=== PATIENT | female | born 1965 | race Caucasian/White ===

== ENCOUNTER 2024-08-15 10:14 | Outpatient (CLI) | payer MEDICARE, MEDICAID, SELFPAY ==
--- NOTE | 2024-08-15 10:29 | XR_ITS ---
FINAL REPORT CLINICAL HISTORY: CHRONIC OBSTRUCTIVE PULMONARY DISEASE FINDINGS: 2 views of the chest were obtained . There are calcified left hilar lymph nodes. The heart is normal in size. The mediastinum is within normal limits. The lungs are clear. There is no pneumothorax. Osseous structures demonstrate a right shoulder prosthesis. IMPRESSION: No acute cardiopulmonary process. Reviewed, Interpreted and Dictated by Roney Robledo MD Transcribed by Quin Vazquez Authenticated and [facility]
== END 2024-08-15 23:59 | disposition home or self-care (01) ==
PROVIDERS: Visit Provider Family Medicine
DX: J44.9 Chronic obstructive pulmonary disease, unspecified (principal)
CPT/HCPCS: 71046

== ENCOUNTER 2024-11-19 14:47 | Outpatient (RCR) | payer MEDICARE, MEDICAID, SELFPAY | END 2024-11-19 23:59 | disposition home or self-care (01) | LOC: PT 14:47 | PROVIDERS: Visit Provider Orthopaedic Surgery | DX: Z96.651 Presence of right artificial knee joint (principal) | CPT/HCPCS: 97110; 97163; 97530 ==

== ENCOUNTER 2024-12-02 11:00 | Outpatient (RCR) | payer MEDICARE, MEDICAID, SELFPAY | END 2024-12-02 23:59 | disposition home or self-care (01) | LOC: PT 11:00 | PROVIDERS: Visit Provider Orthopaedic Surgery | DX: Z96.651 Presence of right artificial knee joint (principal) | CPT/HCPCS: 97110; 97140; 97530 ==

== ENCOUNTER 2025-04-02 10:54 | Outpatient (CLI) | payer MEDICARE, MEDICAID, SELFPAY ==
--- OUTSIDE RECORDS SUMMARY | 2025-04-02 10:58 | XMS_ITS | Continuity of Care Document ---
Author Organization [place] [facility] - [place] [facility] [place], [facility] and [facility] Address [address] [place] [address] Care Team Providers Care Onsite Case Manager Name Role Phone UMU RASCON Primary Care Provider PRESLEY MUSTAFA Primary Care Provider [phone] Assessment Encounter Date Assessment Date Assessment LastModified by Organization Details LastModified Time 03/11/2025 03/11/2025 BP improved, continue current dose of lisinopril. She reports MRI white matter in the past brain, 5 years ago. She reports some memory issues noted by herself and her daughter. She would like to see neurology to discuss further. Patient has been dealing with some depression. Will start Unable to get cardiac workup for her exertional fatigue and history of possible GA. She does report some PARRA. SSRI with methadone [email or web address] Not available 03/12/2025 09:41:55 Plan of Treatment Reminders Order Date Submit Date Provider Last Modified By Organization Details Last Modified Time Details Appointments Establish ed Visit 15 min 2024 11:00A M Chris Rodríguez PA-C Not available Not available Not available OV EST 20 2024 10:50A M Umu Rascon PA-C Not available Not available Not available Lab BMP, serum or plasma 2024 025 [facility], [address], [address], [place], [address], 03/12/2025 06:37:[address] referral 2024 025 [facility] [place], [address], [place], [address], 03/19/2025 18:02:55 Procedures lexiscan cardiolit e stress test (PROC) 2024 025 [facility] (Centralized Scheduling), [address], [place], [address], 03/11/2025 11:31:02 Surgeries None recorded. Imaging US, echocardi ogram, transthor acic, complete, w/ color flow 2024 [facility] (Centralized Scheduling), [address] [facility], [place], [address], 03/26/2025 09:28:57 Medication Orders ibuprofen 600 mg tablet 2024 025 [facility], [address], [address], 03/11/2025 10:14:53 Zoloft 25 mg tablet 2024 025 [facility], [address], [address], 03/12/2025 11:31:00 Patient TargetsNo targets recorded. Patient InstructionsNo instructions recorded. Reason for Referral Neurologist Referral for Amn esia Referring Physician: Umu Rascon, Family Medicine, Encounter Date: 03/11/2025 Results Created Date Observation Date Name Description Value Unit Range Abnormal Flag Note LastModifiedBy Organization Detail LastModifiedTime 02/13/2002/12/2025 chelo scrn mammo w/CAD bilat [facility] [address] [place] [address] Phone: Fax: Name: REHANA PELAEZ Exam Date: : 966 Age 60 years Gender : F Access ion: [id number] Physic geeta: PINO T, ISAÍASNE Y Facili ty: [facility] Facili ty HSV: Outpat ient Exam: CHELO SCRN MAMMO W/CAD BILAT Exam: 3-D screen ing mammog memo includ ing tomosy nthesi s and CAD (Compu ter Assist ed Detect ion). Clinic al indica tion: Asympt omatic screen ing exam Compar denise: Exams to 2020 TECHNI QUE: Routin e bilate ral 2D screen ing mammog silverio with CC and MLO views obtain ed. 3-D tomosy nthesi s and Comput er assist ed detect ion were utiliz ed for this exam. BREAST DENSIT Y: The breast s are hetero geneou sly dense, which may obscur e small masses FINDIN GS: No suspic ious mass, lety ectura l distor tion, or suspic ious calcif icatio ns are presen t. Stable bilate ral surgic al change s IMPRES DAJA: No eviden ce of malign pan in either breast Recomm endati on: Annual screen ing mammog memo recomm ended in one year The result s of this report will be commun icated to the patien t by letter in layman 's terms. ACR BI-RAD S: BI-RAD S assess ment catego ry 1: Negati ve mammog silverio Mammog memo does not detect approx imatel y 10-15% of breast cancer s. A normal mammog silverio does not exclud e breast cancer in a patien t with palpab le mass or abnorm al findin gs on physic al examin ation. These patien ts may need biopsi es and when clinic ally indica taras a biopsy should not be postpo eleonora becaus e of a normal mammog silverio. If the patien t has breast surger y or biopsy , FDA/MQ SA Regula tory Guidel sanna mandat e that this facili ty receiv e pathol ogic result s for follow -up correl ation. Electr onical ly signed by: Curtis Cutler MD 2024 03:16 PM EDT RP Workst ation: [id number] Dictat ed By: Curtis Cutler Transc ribed By: Transc ribed On: 025 3:16 PM Electr onical ly signed by: Curtis Cutler 025 Thank you for referr ing REHANA PELAEZ to [facility]. Legall y authen ticate d by FAHAD CONTI 02-12 15:16: 38 CC'ed Logic: Orderi ng Provid er: PINO VANESSA Y CC Provid er: BINTAET T ISAÍASNE Y Attend ing Provid er: TACKET T ISAÍASNE Y Referr ing Provid er: BINTAET T RASHEEDA Y Admitt ing Provid er: PINO VANESSA Y [email or web address] [facility] [address] [place] [address], [place], [address], 02/18/2025 14:12:43 02/29/20 25 02/27/2025 US, liver [facility] [address] [place] [address] Phone: Fax: Name: REHANA PELAEZ Exam Date: 02/28/20 : [birth year] Age 60 years Gender : F Access ion: [id number] Physic geeta: CHRIS RODRÍGUEZ Facili ty: [facility] Facili ty HSV: Outpat ient Exam: LIVER ULTRAS OUND Ultras ound liver the right upper quadra nt HISTOR Y: Hepati tis C COMPAR DENISE: 12/25/19 19 TECHNI QUE: B-mode color Dopple r and pulse Dopple r FINDIN GS: Pancre as normal in size and appear ance. Pancre atic duct is 0.25 cm The liver is 14.6 cm in length with normal echote xture. There is mild intrah epatic biliar y dilata tion. CBD is 0.8 cm. Gallbl adder free of wall thicke johanne or shadow ing stones . Wall 0.16 cm. Right kidney is 10.2 x 2.9 x 4.3 cm no stone, mass or hydron ephros is. No free fluid in the right upper quadra nt There is hepato pedal portal venous flow with color and pulse Dopple r. IMPRES DAJA: Dilate d CBD and mild intrah epatic biliar y dilata tion. Consid er MRCP evalua tion. Electr onical ly signed by: Filipe Stanley MD 2024 02:53 PM EDT RP Workst ation: [id number] Dictat ed By: Filipe Stanley Transc ribed By: Transc ribed On: 02/29/20 2:53 PM Electr onical ly signed by: Filipe Stanley 02/29/20 Thank you for referr REHANA Rojas to [facility]. Legall y authen ticate d by SURINDER DEE 2024-0 02-28 14:53: 13 CC'ed Logic: Orderi ng Provid er: KATY PECK Attend ing Provid er: KATY PECK Admitt ing Provid er: KATY PECK [facility] [address], [place], [address], 02/28/2025 14:57:14 03/05/20 25 02/26/2025 home sleep study No observ ation record ed. [email or web address] Not Available 03/06 09:54:07 03/12/20 25 02/12/2025 compl ete PFT w/ post [facility] hodil ator rama metry * No observ ation record ed. [facility] [address] [facility] [place], [address], 03/12/2025 15:15:59 Result Notes None recorded. Problems Name Problem SNOMED Code Status Onset Date Resolution Date Notes Provider Name and Address Organization Details Recorded Time Sinus bradycardi a 47932680 Active 2023 Hang Yu MD [address] [facility], [place], [address], [facility] & [place] 16:11:58 Chronic hepatitis C caused by Hepatitis C virus genotype 1a 476217130 Active 2024 Chris Rodríguez PA-C [address], [place], [address], [place] - [facility] [place] [facility] [place] 5 10:25:29 Hepatitis B core antibody detected 689070334 Active 2024 Chris Rodríguez PA-C [address], [place], [address], [place] [facility] [place] 5 10:49:43 Breasts asymmetric al 750765134 Active 2022 Joanie Ordaz null, [place] - [facility] [place] 3 10:22:55 Family history of malignant neoplasm of ovary 580318652 Active 2022 Joanie Ordaz null, [place] [facility] [place] 3 10:23:06 Family history of breast cancer 238193014 Active 2022 Joanie Ordaz null, [place] [facility] [place] 3 10:23:12 Acute type A viral hepatitis 80675263 Active 2022 Joanie Ordaz null, [place] [facility] [place] 3 10:23:31 Viral hepatitis C 18249746 Active 2022 Joanie Ordaz null, [place] [facility] [place] 3 10:23:37 Posttrauma tic stress disorder 42659676 Active 2022 Joanie Ordaz null, [place] [facility] [place] 3 10:23:44 Vertigo 971223278 Active 2022 Joanie Ordaz null, [place] - [facility] [place] 3 10:23:51 MRI of head abnormal 022933004893 107 Active 2022 Joanie Ordaz null, [place] [facility] [place] 3 10:24:01 Cerebrovas cular disease 69913974 Active 2022 Joanie Ordaz null, [place] [facility] [place] 3 10:24:16 Vitamin D deficiency 55428832 Active 2022 Joanie Ordaz null, [place] - [facility] [place] 3 10:24:34 Essential hypertensi on 66656094 Active 2022 Joanie Ordaz null, [place] [facility] [place] 3 10:24:39 Osteoarthr itis 692448117 Active 2022 Joanie Orlin null, [place] [facility] [place] & [place] 3 10:24:47 Harmful pattern of use of cocaine 89227808 Active 2022 Joanie Ordaz null, [place] [facility] - & [place] 3 10:25:00 Anxiety 79669959 Active 2022 Joanie Ordaz null, [place] [facility] - & [place] 3 10:25:08 Panic attack 231377475 Active 2022 Joanie Ordaz null, [place] - [facility] - & [place] 3 10:25:14 Hyperlipid emia 40252595 Active 2022 Joanie Ordaz null, [place] - [facility] - [place] & [place] 3 10:25:21 Chronic hepatitis 47946593 Active 2022 Archana Lizama NP [address] [place] [address], [address], [address], [place] - [facility] - & [place] 3 11:17:17 Problem Notes None recorded. Procedures Surgical History Date Name Laterality Status Provider Name and Address Organization Details Recorded Time 02/13/20 25 Most Recent Mammogram completed Archana Bradley [place] - [facility] [place] 02/26/2025 09:42:52 10/26/19 25 Knee Surgery completed Sol Key [place] - [facility] - & [place] 01/22/2025 09:13:46 09/25/19 22 Joint Replacement completed Britt HUTCHINS - [facility] - & [place] 01/02/2023 09:40:19 02/26/20 19 Date of Last Colonoscopy completed Solis Osuna [place] - [facility] - & [place] 05/24/2023 16:44:37 02/26/20 19 Colonoscopy completed Solis HUTCHINS - [facility] - [place] 08/05/2024 10:24:53 01/30/20 19 Date of Last Pap Smear completed Britt HUTCHINS - [facility] - [place] 01/02/2023 09:40:06 12/18/19 19 completed Britt roger [place] - [facility] - [place] 01/02/2023 09:40:06 09/25/19 19 biopsy of breast completed Archana Bradley [place] - [facility] - [place] 02/26/2025 09:44:02 09/25/19 15 Breast Surgery completed Britt roger [place] - [facility] - [place] [facility] [place] 01/02/2023 09:40:19 09/25/19 01 Other completed Britt roger [place] - [facility] - [place] [facility] [place] 01/02/2023 09:40:19 loop electrosurgical excision procedure of cervix completed Yee Dugan [place] - [facility] - [place] 01/30/2023 15:18:49 lumpectomy of breast completed Solis HUTCHINS - [facility] - [place] 05/24/2023 16:39:16 Carpal tunnel surgery completed Yee Dugan [place] - [facility] - [place] 01/30/2023 15:19:45 delivery completed Yee Ritchie Marshall [place] - [facility] & [place] 01/30/2023 15:20:01 total shoulder replacement completed Chiquis Snow [place] - [facility] - [place] 08/20/2024 13:47:59 Imaging Results None recorded. Procedure Notes None recorded. Medical Equipment None Reported. Allergies No known drug allergies Medications Name Sig Start Date Stop Date Status Note LastModified by Organization Details LastModified Time multivitami n tablet 01/16 completed Not Available Not Available Not Available celecoxib 200 mg capsule TAKE 1 CAPSULE BY MOUTH ONCE DAILY 01/22 completed Not Available Not Available Not Available atorvastati n 40 mg tablet TAKE 1 TABLET BY MOUTH NIGHTLY FOR 30 DAYS. 08/13 completed Not Available Not Available Not Available methocarbam ol 500 mg tablet TAKE 1 TABLET BY MOUTH 4 TIMES A DAY 08/13 completed Not Available Not Available Not Available venlafaxine ER 37.5 mg capsule,ext ended release 24 hr TAKE 1 CAPSULE BY MOUTH 1 TIME EACH DAY. DO NOT CRUSH OR CHEW. 10/04 completed Not Available Not Available Not Available clonidine HCl 0.1 mg tablet PLEASE SEE ATTACHED FOR DETAILED DIRECTION S 08/13 completed Not Available Not Available Not Available acetaminoph en 325 mg tablet 08/13 completed Not Available Not Available Not Available atorvastati n 20 mg tablet TAKE 1 TABLET BY MOUTH EVERY DAY 06/29 completed Not Available Not Available Not Available nicotine 14 mg/24 hr daily transdermal patch PLACE 1 PATCH ONTO THE SKIN DAILY 08/13 completed Not Available Not Available Not Available loperamide 2 mg capsule TAKE 1 CAPSULE (2 MG TOTAL) BY MOUTH 4 (FOUR) TIMES DAILY NEEDED FOR DIARRHEA FOR UP TO 10 DAYS. 08/13 completed Not Available Not Available Not Available trazodone 50 mg tablet 08/13 completed Not Available Not Available Not Available pravastatin 40 mg tablet TAKE 1 TABLET BY MOUTH EVERY OTHER DAY 08/13 completed Not Available Not Available Not Available ibuprofen 800 mg tablet TAKE 1 TABLET BY MOUTH THREE TIMES DAILY active Not Available Not Available No t Available hydrocodone 5 mg-acetamin ophen 325 mg tablet TAKE 1 TABLET BY MOUTH TWICE A DAY NEEDED 10/04 completed Not Available Not Available Not Available prazosin 1 mg capsule TAKE 1 CAPSULE BY MOUTH EVERY NIGHT. 01/16 completed Not Available Not Available Not Available naltrexone 50 mg tablet 08/13 completed Not Available Not Available Not Available ondansetron HCl 4 mg tablet 08/13 completed Not Available Not Available Not Available prednisone 20 mg tablet TAKE 2 TABLETS BY MOUTH EVERY DAY DIRECTED 08/13 completed Not Available Not Available Not Available clonazepam 1 mg tablet 01/16 completed Not Available Not Available Not Available thiamine HCl (vitamin B1) 100 mg tablet TAKE 1 TABLET BY MOUTH 1 TIME EACH DAY. 01/16 completed Not Available Not Available Not Available amlodipine 2.5 mg tablet TAKE 1 TABLET BY MOUTH ONCE DAILY FOR 90 DAYS active Not Available Not Available No t Available hydroxyzine HCl 50 mg tablet TAKE 1 TABLET (50 MG TOTAL) BY MOUTH 4 (FOUR) TIMES DAILY NEEDED FOR ANXIETY FOR UP TO 10 DAYS . 08/13 completed Not Available Not Available Not Available tramadol 50 mg tablet TAKE 1 TABLET BY MOUTH EVERY 6 HOURS NEEDED FOR PAIN 01/16 completed Not Available Not Available Not Available acetaminoph en 500 mg tablet TAKE 2 TABLETS (1,000 MG TOTAL) BY MOUTH EVERY 6 (SIX) HOURS NEEDED FOR FEVER FOR UP TO 10 DAYS. 08/13 completed Not Available Not Available Not Available meloxicam 7.5 mg tablet TAKE 1 TABLET BY MOUTH EVERY DAY 06/29 completed Not Available Not Available Not Available oxycodone-a cetaminophe n 5 mg-325 mg tablet TAKE 1 TABLET BY MOUTH 4 TIMES DAILY NEEDED 01/22 completed Not Available Not Available Not Available baclofen 10 mg tablet 08/13 completed Not Available Not Available Not Available hydrocodone 7.5 mg-acetamin ophen 325 mg tablet TAKE 1 TABLET BY MOUTH 4 TIMES A DAY 06/29 completed Not Available Not Available Not Available paroxetine 20 mg tablet TAKE 1 TABLET BY MOUTH EVERY DAY IN THE MORNING FOR 30 DAYS 06/29 completed Not Available Not Available Not Available lisinopril 10 mg tablet TAKE 1 TABLET BY MOUTH EVERY DAY 08/13 completed Not Available Not Available Not Available lidocaine 5 % topical patch APPLY ONE PATCH TOPICALLY TO CLEAN, DRY SKIN. LEAVE ON FOR 12 HOURS THEN REMOVE. MUST WAIT AT LEAST 12 HOURS BEFORE APPLYING PATCH(ES) AGAIN. active Not Available Not Available No t Available promethazin e 25 mg tablet TAKE 1 TABLET (25 MG TOTAL) BY MOUTH EVERY 6 HOURS NEEDED FOR UP TO 7 DAYS 08/13 completed Not Available Not Available Not Available hydrochloro thiazide 12.5 mg capsule TAKE 1 CAPSULE (12.5 MG TOTAL) BY MOUTH DAILY 08/13 completed Not Available Not Available Not Available nitroglycer in 0.4 mg sublingual tablet PLEASE SEE ATTACHED FOR DETAILED DIRECTION S 08/13 completed Not Available Not Available Not Available Banophen 25 mg capsule 08/13 completed Not Available Not Available Not Available aspirin 81 mg chewable tablet TAKE 1 TABLET BY MOUTH EVERY DAY 08/13 completed Not Available Not Available Not Available diclofenac sodium 75 mg tablet,arielle yed release TAKE 1 TABLET BY MOUTH TWICE A DAY 06/29 completed Not Available Not Available Not Available folic acid 1 mg tablet TAKE 1 TABLET BY MOUTH 1 TIME EACH DAY. 01/16 completed Not Available Not Available Not Available hydroxyzine HCl 25 mg tablet TAKE 1 TABLET BY MOUTH ONCE OR TWICE A DAY NEEDED FOR PANIC ATTACK 06/29 completed Not Available Not Available Not Available mirtazapine 15 mg tablet TAKE 1 TABLET BY MOUTH EVERY NIGHT. 01/16 completed Not Available Not Available Not Available ergocalcife rol (vitamin D2) 1,250 mcg (50,000 unit) capsule TAKE 1 CAPSULE BY MOUTH ONCE WEEKLY DIRECTED 12/05 completed Not Available Not Available Not Available diazepam 10 mg tablet TAKE 1 TABLET BY MOUTH THREE TIMES A DAY 08/13 completed Not Available Not Available Not Available ibuprofen 600 mg tablet TAKE 1 TABLET BY MOUTH THREE TIMES DAILY NEEDED FOR 10 DAYS active Not Available Not Available No t Available methylpredn isolone 4 mg tablets in a dose pack TAKE 6 TABLETS ON DAY 1 DIRECTED ON PACKAGE AND DECREASE BY 1 TAB EACH DAY FOR A TOTAL OF 6 DAYS 06/29 completed Not Available Not Available Not Available albuterol sulfate HFA 90 mcg/actuati on aerosol inhaler INHALE 2 PUFFS BY MOUTH EVERY 6 HOURS NEEDED active Not Available Not Available No t Available Zoloft 25 mg tablet Take 1 tablet every day by oral route for 60 days. 2024 active Not Available Not Available Not Avai lable bromphenira mine-pseudo ephedrine-D M 2 mg-30 mg-10 mg/5 mL oral syrup TAKE 2 TEASPOONS BY MOUTH EVERY 6 HOURS NEEDED FOR 5 DAYS 06/29 completed Not Available Not Available Not Available ondansetron 4 mg disintegrat ing tablet 01/16 completed Not Available Not Available Not Available lisinopril 2.5 mg tablet TAKE 1 TABLET BY MOUTH ONCE DAILY FOR 30 DAYS 03/12 completed Not Available Not Available Not Available naproxen 500 mg tablet TAKE 1 TABLET BY MOUTH TWICE A DAY 08/13 completed Not Available Not Available Not Available diazepam 5 mg tablet PLEASE SEE ATTACHED FOR DETAILED DIRECTION S 08/13 completed Not Available Not Available Not Available escitalopra m 10 mg tablet TAKE 1 TABLET BY MOUTH EVERY DAY 08/13 completed Not Available Not Available Not Available valsartan 40 mg tablet TAKE 2 TABLETS (80 MG TOTAL) BY MOUTH DAILY FOR 30 DAYS. 08/13 completed Not Available Not Available Not Available buprenorphi ne 8 mg-naloxone 2 mg sublingual tablet DISSOLVE 2 TABLETS UNDER TONGUE ONCE DAILY FOR 7 DAYS 08/13 completed Not Available Not Available Not Available rosuvastati n 5 mg tablet TAKE 1 TABLET BY MOUTH ONCE DAILY active Not Available Not Available No t Available methadone active Not Available Not Ebony ilable Not Available FeroSul 325 mg (65 mg iron) tablet 08/13 completed Not Available Not Available Not Available diclofenac 1 % topical gel APPLY 2 GRAMS TO AFFECTED AREA(S) UP TO 4 TIMES DAILY 01/16 completed Not Available Not Available Not Available melatonin 5 mg tablet 08/13 completed Not Available Not Available Not Available buprenorphi ne 8 mg-naloxone 2 mg sublingual film DISSOLVE 2 & 1/2 FILMS UNDER TONGUE ONCE DAILY FOR 7 DAYS 08/13 completed Not Available Not Available Not Available Eliquis 2.5 mg tablet TAKE 1 TABLET BY MOUTH TWICE DAILY 01/22 completed Not Available Not Available Not Available naloxone 4 mg/actuatio n nasal spray PLEASE SEE ATTACHED FOR DETAILED DIRECTION S 08/13 completed Not Available Not Available Not Available Sublocade 300 mg/1.5 mL solution,ex tended release subcutaneou s syringe 08/13 completed Not Available Not Available Not Available [facility] COVID-19 Antigen Rapid Home Test kit 01/16 completed Not Available Not Available Not Available Vitals Date Recorded Body height Body mass index (BMI) Body weight Body temperature Oxygen saturation Oxygen saturation in Arterial blood by Pulse oximetry Heart rate Systolic And Diastolic Provider Name and Address Organization Details Last Updated DateTime 5 158.75 cm 22.7 kg/m2 95045.6 4 g 97.1 [degF] 97 % 97 % 70 /min 120/62 mm[Hg] Ashley Silvestre [facility] & [place] 5 11:26:15 Date Recorded Body height Body mass index (BMI) Body weight Body temperature Heart rate Systolic And Diastolic Provider Name and Address Organization Details Last Updated DateTime 5 158.75 cm 22.7 kg/m2 88015.7 4 g 97.9 [degF] 61 /min 127/76 mm[Hg] Sol Key [facility] & [place] 10:23:54 Social History Question Answer Notes LastModified by Organizat ion Details LastModified Time Tobacco Smoking Status Never Smoker [place], [facility] & [place] 01/02/2023 09:40:15 Do You Have An Advance Directive? No [email or web address] Information not available 01/02/2023 Are You Blind Or Do You Have Difficulty Seeing? No [email or web address] Information not available 01/23/2025 Is Blood Transfusion Acceptable In An Emergency? Yes Information not available 01/22/2025 What Is Your Level Of Caffeine Consumption? Heavy [email or web address] Information not available 08/20/2024 In The 14 Days Before Symptom Onset, Have You Had Close Contact With A Laboratory-confir med COVID-19 While That Case Was Ill? No Information not available 01/22/2025 In The 14 Days Before Symptom Onset, Have You Had Close Contact With A Person Who Is Under Investigation For COVID-19 While That Person Was Ill? No Information not available 01/22/2025 Have You Been To An Area Known To Be High Risk For COVID-19? No Information not available 01/22/2025 Are You Deaf Or Do You Have Serious Difficulty Hearing? No Information not available 01/22/2025 What Type Of Diet Are You Following? REGULAR Information not available 01/22/2025 Which Illicit Or Recreational Drugs Have You Used? Thc [email or web address] Information not available 08/20/2024 Have You Processed Blood Or Body Fluids From An Ebola Virus Disease Patient Without Appropriate PPE? No Information not available 01/22/2025 Do You Reside In Or Have You Traveled To An Area Where Ebola Virus Transmission Is Active? No Information not available 01/22/2025 Have There Been Any Changes To Your Family Or Social Situation? Yes Information no t available 01/22/2025 What Is The Fluoride Status Of Your Home? Fluoridated Information not available 01/22/2025 When Did You Quit Smoking? 6-10yearssinwilmer vera [email or web address] Information not available 01/02/2023 Are There Any Guns Present In Your Home? No Information not available 01/22/2025 Have You Recently Or Are You Planning To Travel To An Area With Zika Virus? No Information not available 01/22/2025 Do You Use Insect Repellent Routinely? No Information not available 01/22/2025 Do You Feel Safe At Home? Yes Information not available 01/22/2025 Do You Have A Medical Power Of Claim Specialist? No Information not available 01/22/2025 What Was The Date Of Your Most Recent Tobacco Screening? 12/05/2022 [email or web address] Information not available 01/02/2023 How Many Children Do You Have? 1 Information not available 01/22/2025 Do You Have Any Pets? Yes Information not available 01/22/2025 What Is Your Relationship Status? Single Information not available 01/22/2025 Do You Use Your Seat Belt Or Car Seat Routinely? Yes Information not available 01/22/2025 Are You Sexually Active? No Information not available 01/22/2025 Do You Have Smoke And Carbon Monoxide Detectors In Your Home? Yes Information not available 01/22/2025 Are You Passively Exposed To Smoke? No [email or web address] Information no t available 01/02/2023 How Much Tobacco Do You Smoke? No [email or web address] Information not available 01/02/2023 Do You Use Sunscreen Routinely? Yes Information not available 01/22/2025 Has Tobacco Cessation Counseling Been Provided? Yes [email or web address] Information not available 01/02/2023 How Many Years Have You Smoked Tobacco? 0 [email or web address] Information not available 01/02/2023 Have You Used IV Drugs? Yes 2015 [email or web address] Information not available 08/20/2024 Do You Have Difficulty Walking Or Climbing Stairs? No Information not available 01/22/2025 Are You Currently In School? No Information not available 01/22/2025 Sex: Unknown Functional Status Question Answer Note LastModified by Organizat ion Details LastModified Time Do you use any illicit or recreational drugs? No [email or web address] Information not available 01/23/2025 Do you or have you ever used any other forms of tobacco or nicotine? No [email or web address] Information not available 01/02/2023 What is your level of alcohol consumption? None drison Information not available 06/29/2022 Do you or have you ever used smokeless tobacco? [id number] [email or web address] Information not available 01/02/2023 Are you currently employed? No Information not available 01/22/2025 Do you have transportation difficulties? No Information not available 01/22/2025 Are you able to walk? YESWOREST Information not available 01/22/2025 Do you have difficulty doing errands alone? No Information not available 01/22/2025 Are you able to care for yourself? Yes Information not available 01/22/2025 Do you have difficulty dressing or bathing? No Information not available 01/22/2025 What is your exercise level? None [email or web address] Information not available 01/23/2025 Mental Status Question Answer Note LastModified by Organizat ion Details LastModified Time Do you feel stressed (tense, restless, nervous, or anxious, or unable to sleep at night)? [id number] [email or web address] Information not available 01/02/2023 Do you have difficulty concentrating, remembering or making decisions? No memory a little Information not available 01/22/2025 Family History Relationship Description Onset Age of this Age Resolved Age Notes LastModified by Organization Details LastModified Time Mother Chronic obstructive pulmonary disease pt. added direct ly (12/05) [email or web address]-13 Not available 12/05/2022 12:56:53 Mother Hypertensive disorder pt. added direct ly (12/05) [email or web address]-13 Not available 12/05/2022 12:57:42 Mother Malignant neoplastic disease Lung CA [email or web address] Not available 01/22/2025 08:51:28 Maternal Grandmother Chronic obstructive pulmonary disease pt. added direct ly (12/05) [email or web address]-13 Not available 12/05/2022 12:56:53 Maternal Grandmother Hypertensive disorder pt. added direct ly (12/05) API-13 Not available 12/05/2022 12:57:42 Maternal Grandmother Malignant neoplastic disease [email or web address] Not available 2024 08:51:28 Maternal Grandfather Chronic obstructive pulmonary disease pt. added direct ly (12/05) API-13 Not available 12/05/2022 12:56:53 Maternal Grandfather Hypertensive disorder pt. added direct ly (12/05) API-13 Not available 12/05/2022 12:57:42 Father Hypertensive disorder pt. added direct ly (12/05) API-13 Not available 12/05/2022 12:57:42 Father Malignant neoplastic disease Skin-M elanom a [email or web address] Not available 01/22/2025 08:51:28 Brother Hypertensive disorder pt. added direct ly (12/05) API-13 Not available 12/05/2022 12:57:42 Paternal Grandmother Hypertensive disorder pt. added direct ly (12/05) API-13 Not available 12/05/2022 12:57:42 Maternal Aunt Hypertensive disorder pt. added direct ly (12/05) API-13 Not available 12/05/2022 12:57:42 Maternal Aunt Malignant neoplastic disease [email or web address] Not available 2024 08:51:28 Paternal Uncle Hypertensive disorder pt. added direct ly (12/05) API-13 Not available 12/05/2022 12:57:42 Medical History Condition Response Depression Y Lung Disease Y Anxiety Disorder Y Autoimmune disease Y Arthritis Y High Cholesterol Y Liver Disease Y Rheumatoid Arthritis Y Heart Attack ([place]) Y Substance Abuse Y Hepatitis Y Hypertension Y Gynecological History Statement/Question Response Abnormal Pap N 12/17/2018 Flow Moderate Date of LMP 12/29/2015 Duration of Flow (days) 7 Most Recent Mammogram 02/12/2025 If Post Menopausal, Age at Menopause 54 Date of Last Colonoscopy 02/25/2019 Sexually Active? N Menses Monthly N Date of Last Pap Smear 01/29/2019 Obstetrics History GPAL:G 1 P 0 0 0 1 Type Value Living 1 Total 1 Immunizations Vaccine Type Date Status Note Provider Nam e and Address Organization Details Recorded Time SARS-COV-2 (COVID-19) vaccine, UNSPECIFIED 2 completed [place], [place] - [facility] - [facility] 03/26/2025 07:13:22 SARS-COV-2 (COVID-19) vaccine, UNSPECIFIED 2 completed Archana Bradley null, [place] - [facility] - [place] [facility] [place] 03/26/2025 07:13:22 SARS-COV-2 (COVID-19) vaccine, UNSPECIFIED 1 completed Archana [place] null, [place] - [facility] - [place] [facility] [place] 03/26/2025 07:13:22 SARS-COV-2 (COVID-19) vaccine, UNSPECIFIED 1 completed Archan[place] [facility] [place] [facility] [place] 03/26/2025 07:13:22 Hep A, unspecified formulation 0 completed Archana [place] [facility] [place] [facility] [place] 03/26/2025 07:13:22 Hep A, unspecified formulation 9 completed Archana [place] [facility] [place] [facility] [place] 03/26/2025 07:13:22 influenza, unspecified formulation 2 completed Archan[place] [facility] [place] [facility] [place] 03/26/2025 07:13:22 influenza, unspecified formulation 9 completed Archana [place] [facility] [place] [facility] [place] 03/26/2025 07:13:22 influenza, unspecified formulation 8 completed Archana [place] null, [place] - [facility] - [facility] [place] 03/26/2025 07:13:22 influenza, unspecified formulation 0 completed Archana [place] [facility] [place] [facility] [place] 03/26/2025 07:13:22 influenza, unspecified formulation 2 completed Archan[place] [facility] [place] [facility] [place] 03/26/2025 07:13:22 Tdap 7 completed Archan[place] [facility] [place] [facility] [place] 01/15/2025 10:40:34 Tdap 5 completed Archan[place] [facility] [place] [facility] [place] 01/15/2025 10:40:42 Pneumococcal conjugate PCV20, polysaccharide [id number] conjugate, adjuvant, PF 5 completed Archana Kirk null, [place] - [facility] - [place] [facility] [place] 01/23/2025 11:55:06 Tdap 2 completed Archana [place] [facility] - [place] [facility] [place] 01/23/2025 11:55:06 Influenza, split virus, trivalent, PF 5 completed Archana [place] [facility] [place] [facility] [place] 01/23/2025 11:55:06 Td (adult), 2 Lf tetanus toxoid, preservative free, adsorbed 7 completed Archana Bradley null, [place] - [facility] - [place] [facility] [place] 01/23/2025 11:55:06 Past Encounters Encounter ID Performer Location Encounter Start Date Encounter Closed Date Diagnosis/Indication Diagnosis SNOMED-CT Code Diagnosis ICD10 Code Diagnosis Note [id number] Umu Rascon PA-C [facility] [address] [place] [address] 03/11/2025 09:40:29 03/11/2025 10:26:29 Dyspnea on exertion 40346367 R06.09 Hypertensive disorder 38 818215 I10 Amnesia 51226351 R41.3 Depressive disorder 3548 9007 F32.A Intermittent pain 044767 004 R52 [id number] Chris Rodríguez PA-C [facility] [address] [place] [address] 02/12/2025 09:37:18 02/12/2025 10:41:05 History of colonoscopy [id number] 09 Z98.890 -Repeat screening colonoscop y will be due 02/2029 Chronic he patitis C caused by Hepatitis C virus genotype 1a 062464084 B18.2 -She has evidence of chronic infection >2 years-VL 1.26 million on 01/22/25- e 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 She is prescribed methadone. -We will obtain a US liver and labs per below. We will plan to apply for treatment as appropriat e. She will follow-up for treatment initiation .-Patient was educated on modes of transmissi on of hepatitis- C and encouraged to not share personal hygiene products such as razors or toothbrush es. Patient was instructed to practice barrier methods during times of sexual contact and was instructed to encourage sexual partners to receive testing for hepatitis- C. History of hepatitis A [id number] Z86.19 2019 Hepatitis B core antibody detected 558393960 R76.8 -noted in 2019. Obtain hepatitis B serologies today to ensure no co-infecti on. [id number] Damion Viera MD [facility] - [address] [place] [address] 03/11/2025 10:42:52 03/11/2025 11:38:59 Obstructive sleep apnea syndrome 48938936 G47.33 autopap 6-16 Harmful pa ttern of substance use 1792338085 F19.10 Splitting nasal scarring or stricture contributi ng to some of her LEBRON symptoms. Her BMI neck circumfere nce are not classic for traditiona l LEBRON. Consider additional Flonase. Health Concerns Section Related Observation LastModified by Organization Detai ls LastModified Time None Recorded Concern Status LastModified by Organization Details LastModified Time None Recorded Payers Encounter Date Sequence Insurance Name Policy Number Policy Marshall Covered Member ID Marshall Member ID Guarantor Name 03/11/2025 1 [place] Rehana Willoughby [id number] Rehana Willoughby 03/11/2025 2 [place] [employer] [place] FFS/TRADITIO NAL Rehana Willoughby [id number] Rehana Willoughby Notes Date Note Type Note Provider Name and Address Organization Details Recorded Time 03/11/2025 text/html Patient reports blood pressure has been running 120's at home. Denies dizziness with lisinopril. Denies dry cough. She has seen GI for her hepatitis C. She reports dyspnea on exertion as well as fatigue with exertion. She reports that she has felt more emotional lately. She has tried medication for depression in the past. Umu Rascon, MAGO-C [address], [place], [address], [facility] - [place] [facility] [place] 03/12/2025 11:30:55 03/11/2025 text/html She is here for follow-up. She was home sleep study performed for hypersomnia symptoms. Her home sleep study shows severe obstructive sleep apnea with an AHI greater than 50. She does not really have much snoring but she does report dry mouth headaches and profound hypersomnia symptoms. She reports frequent awakenings. She does report that she had a fractured nose when she was a teenager. She also volunteers that she has issues with past substance abuse and snorted medications frequently. No history of nasal polyps. Damion Viera MD [address], [place], [address], [place] - [facility] - [place] [facility] [place] 03/11/2025 11:47:38 OBGyn Episode No OBEpisode recorded.
--- OUTSIDE RECORDS SUMMARY | 2025-04-02 10:58 | XMS_ITS | Data Portability ---
Author Organization [place] - [facility] ADMIN Address [address] [place] [id number] Care Team Providers Care Forensic Psychologist Name Role Phone UMU RASCON Primary Care Provider [phone] LIVE LANGE Primary Care Provider Assessment Encounter Date Assessment Date Assessment LastModified by Organization Details LastModified Time 01/22/2025 01/22/2025 Dr. Yu's vis it from 03/2022 mention a recent echo and stress test. Will request records. If they were not completed will again refer to Dr. Yu for cardiac workup concerning exertional fatigue. She last saw him 07/2024 however she did not have these symptoms to discuss. Discussed with [facility] medical records, they were completed in 2020. Requested fax to review. Will obtain labs and HSS as well. She had elevated LDL on most recent labs, will repeat today. Patient reports she took lisinopril 10 mg in the past for HTN, however she had dizziness with standing. Will try low dose 2.5 mg given her elevated BP today. She had HTN with visit with Dr. Yu who advised antihypertensive as well. Referred to GI for hepatitis C treatment. Not available 01/22/2025 10:27:28 02/12/2025 02/12/2025 60-year-old fema danay with treatment naive chronic hepatitis C, genotype 1a infection presents for treatment evaluation. She has a history of acute hepatitis A infection in 2019 and evidence of cleared prior HBV infection noted at that time. Not available 02/12/2025 10:50:39 03/11/2025 03/11/2025 BP improved, continue current dose of lisinopril. She reports MRI white matter in the past brain, 5 years ago. She reports some memory issues noted by herself and her daughter. She would like to see neurology to discuss further. Patient has been dealing with some depression. Will start Unable to get cardiac workup for her exertional fatigue and history of possible PR. She does report some PARRA. SSRI with methadone Not available 03/12/2025 09:41:55 Plan of Treatment Reminders Order Date Submit Date Provider Last Modified By Organization Details Last Modified Time Details Appointments Estab abraham stratton Visit 15 min 2024 11:00A M Chris Rodríguez PA-C Not available Not available Not available OV EST 20 2024 10:50A M Umu Rascon PA-C Not available Not available Not available Lab BMP, serum or plasm a 2024 025 [facility], [address], [address], [place], [address], 03/12/2025 06:37:39 hepat ic funct ion panel , serum 2024 025 [facility] (Registration), [address], [place], [address], 03/05/2025 08:22:14 hepat itis C liver statu s bioma rker panel , serum 2024 025 [facility] (Registration), [address], [place], [address], 02/15/2025 06:11:09 PT/IN R 2024 025 [facility] (Registration), [address], [place], [address], 03/05/2025 08:22:15 HIV (1+2) Ab sherrie n, serum 2024 025 [facility] (Registration), [address], [place], [address], 03/05/2025 08:22:15 hepat itis B core Ab, total , serum 2024 025 [facility] (Registration), [address] [facility], [place], [address], 02/13/2025 07:11:00 HBsAg (hepa titis B surfa ce Ag), serum 2024 025 [facility] (Registration), [address] [place], [address], 03/05/2025 08:22:15 hepat itis B DNA, quant , PCR, serum 2024 [facility] (Registration), [address] [place], [address], 03/05/2025 08:22:15 hepat itis B surfa ce Ab, quant itati ve, serum 2024 [facility] (Registration), [address] [place], [address], 03/05/2025 08:22:15 CBC w/ auto diff 2024 025 JACQUE [facility], [address], [address], [place], [address], 01/25/2025 06:56:47 CMP, serum or plasm a 2024 025 [facility], [address], [address], [place], [address], 01/25/2025 06:56:49 lipid panel , serum 2024 025 [facility], [address], [address], [place], [address], 01/25/2025 06:56:50 TSH, ultra -sens itive , serum 2024 [facility], [address], [address], [place], [address], 01/25/2025 06:56:54 HbA1c (hemo globi n A1c), blood 2024 025 JACQUE [facility], [address], [address], [place], [address], 01/25/2025 06:56:53 hepat itis C virus RNA, quant , PCR, serum or plasm a 2024 025 JACQUE [facility], [address], [address], [place], [address], 01/25/2025 06:56:51 iron + TIBC + sintia tin, serum 2024 025 [facility], [address], [address], [place], [address], 01/25/2025 06:56:46 cobal garcia and folat e panel , serum 2024 025 [facility], [address], [address], [place], [address], 01/25/2025 06:56:52 vitam in D, 25-hy droxy , total , serum 2024 025 [facility], [address], [address], [place], [address], 02/05/2025 14:25:26 Referral neuro logis t refer [facility] 2024 025 [facility], [address], [address], [place], [address], 03/19/2025 18:02:55 gastr zenaida allenog ist refer [facility] 2024 025 [facility], [address], [address], [place], [address], 02/12/2025 15:43:[address] refer ral - Prefe rs femal e provi melissa 2024 025 [email or web address] [place], [address] [facility], [place], [address], 03/31/2025 13:26:45 Procedures britta can cardi olite stres s test (PROC ) 2024 025 [facility] (Centralized Scheduling), [address] [facility], [place], [address], 03/11/2025 11:31:02 Surgeries None recor ded. Imaging US, echoc ardio gram, trans thora cic, compl ete, w/ color flow 2024 025 [facility] (Centralized Scheduling), [address] [place], [address], 03/26/2025 09:28:57 US, liver 2024 025 [facility], [address] [place], [address], 02/28/2025 14:57:14 MAMMO , scree johanne, digit al, bilat eral 2024 025 [facility] (Centralized Scheduling), [address] [place], [address], 03/11/2025 09:35:56 home sleep study 2024 025 [facility] (Centralized Scheduling), [address] [place], [address], 02/10/2025 09:29:56 Medication Orders ibupr ofen 600 mg table t 2024 025 [facility], [address], [address], 03/11/2025 10:14:53 Zolof t 25 mg table t 2024 025 [facility], [address], [address], 03/12/2025 11:31:00 lisin opril 2.5 mg table t 2024 025 [facility], [address], [address], 03/12/2025 10:08:59 albut mely sulfa te HFA 90 mcg/a ctuat ion aeros ol inhal er 2024 025 [facility], [address], [address], 01/22/2025 09:52:16 ibupr ofen 800 mg table t 2023 024 [facility], [address], [address], 08/28/2024 12:43:03 Patient TargetsNo targets recorded. Patient Instructions Encounter Date Encounter Id Patient Instructions Last Modified By Organization Details Last Modified Time 01/22/2025 [id number] complete PFT w/ post bronchodilator spirometry* cmakin Not available 02/10/2025 09:05:50 Reason for Referral Can Conveyor Feeder Referral for Ca ncer cervix screening status Prefers female provider Referring Physician: Family Rayshawn Medicine, Encounter Date: 01/22/2025 Sports Anchor Referral for History of hepatitis C Referring Physician: Family Pradip Tabares, Encounter Date: 01/22/2025 Neurologist Referral for Amn esia Referring Physician: Umu Rascon [facility], Encounter Date: 03/11/2025 Results Created Date Observation Date Name Description Value Unit Range Abnormal Flag Note LastModifiedBy Organization Detail LastModifiedTime 08/13/20 24 08/13/2024 CBC W/ AUTO DIFF WBC 5.59 K/uL 4.5-11 .5 Not Available [facility]) [address] [place] [address] [place], [address], 08/13/2024 19:41:54 08/13/20 24 08/13/2024 CBC W/ AUTO DIFF RBC 4.18 M/uL 4.0-5. 4 Not Available [facility]) [address] [place] [address] [place], [address], 08/13/2024 19:41:54 08/13/20 24 08/13/2024 CBC W/ AUTO DIFF HGB 12.7 g/dL 12.0-1 5.0 Not Available [facility] ([facility]) [address] [place] [address] [place], [address], 08/13/2024 19:41:54 08/13/20 24 08/13/2024 CBC W/ AUTO DIFF HCT 38.7 % 35-49 Not Available [facility] ([facility]) [address] [place] [address] [place], [address], 08/13/2024 19:41:54 08/13/20 24 08/13/2024 CBC W/ AUTO DIFF MCV 92.6 fL 80.0-1 00.0 Not Available [facility] ([facility]) [address] [place] [address] [place], [address], 08/13/2024 19:41:54 08/13/20 24 08/13/2024 CBC W/ AUTO DIFF MCH 30.4 pg 26.0-3 2.0 Not Available [facility]) [address] [place] [address] [place], [address], 08/13/2024 19:41:54 08/13/20 24 08/13/2024 CBC W/ AUTO DIFF MCHC 32.8 g/dL 32.0-3 6.0 Not Available [facility] ([facility]) [address] [facility] [place], [address], 08/13/2024 19:41:54 08/13/20 24 08/13/2024 CBC W/ AUTO DIFF RDW 12.4 % 11.5-1 4.5 Not Available [facility]) [address] [facility] [place], [address], 08/13/2024 19:41:54 08/13/20 24 08/13/2024 CBC W/ AUTO DIFF platelet count 308 K/uL 142-42 4 Not Available [facility]) [address] [place] [address] [place], [address], 08/13/2024 19:41:54 08/13/20 24 08/13/2024 CBC W/ AUTO DIFF MPV 9.4 fL 6.8-10 .2 Not Available [facility]) [address] [facility] [place], [address], 08/13/2024 19:41:54 08/13/20 24 08/13/2024 CBC W/ AUTO DIFF neutrophil % 61.4 % 50-70 Not Available [facility]) [address] [facility] [place], [address], 08/13/2024 19:41:54 08/13/20 24 08/13/2024 CBC W/ AUTO DIFF lymphocyte % 29.7 % 18.0-4 2.0 Not Available [facility]) [address] [place] [address] [place], [address], 08/13/2024 19:41:54 08/13/20 24 08/13/2024 CBC W/ AUTO DIFF monocyte % 5.0 % 2.0-11 .0 Not Available [facility]) [address] [place] [address] [place], [address], 08/13/2024 19:41:54 08/13/20 24 08/13/2024 CBC W/ AUTO DIFF eosinophil % 3.4 % 1.0-3. 0 high Not Available [facility]) [address] [facility] [place], [address], 08/13/2024 19:41:54 08/13/20 24 08/13/2024 CBC W/ AUTO DIFF basophil % 0.5 % 0.0-2. 0 Not Available [facility]) [address] [place] [address] [place], [address], 08/13/2024 19:41:54 08/13/20 24 08/13/2024 CBC W/ AUTO DIFF immature granulocytes % 0.0 % 0.0-0. 8 Not Available [facility]) [address] [place] [address] [place], [address], 08/13/2024 19:41:54 08/13/20 24 08/13/2024 CBC W/ AUTO DIFF nucleated red blood cells % 0.0 % Not Available [facility]) [address] [place] [address] [place], [address], 08/13/2024 19:41:54 08/13/20 24 08/13/2024 CBC W/ AUTO DIFF neutrophil # 3.43 K/uL Not Available [facility]) [address] [place] [address] [place], [address], 08/13/2024 19:41:54 08/13/20 24 08/13/2024 CBC W/ AUTO DIFF lymphocyte # 1.66 K/uL Not Available [facility] (Pre[facility]Op Clinic) [address] [place] [address] [place], [address], 08/13/2024 19:41:54 08/13/20 24 08/13/2024 CBC W/ AUTO DIFF monocyte # 0.28 K/uL Not Available [facility] ([facility]Op [facility]) [address] [place] [address] [place], [address], 08/13/2024 19:41:54 08/13/20 24 08/13/2024 CBC W/ AUTO DIFF eosinophil # 0.19 K/uL Not Available [facility]) [address] [facility] [place], [address], 08/13/2024 19:41:54 08/13/20 24 08/13/2024 CBC W/ AUTO DIFF basophil # 0.03 K/uL Not Available [facility]) [address] [place] [address] [place], [address], 08/13/2024 19:41:54 08/13/20 24 08/13/2024 CBC W/ AUTO DIFF immature gramulocytes # 0.00 K/uL Not Available [facility] ([facility]Op [facility]) [address] [place] [address] [place], [address], 08/13/2024 19:41:54 08/13/20 24 08/13/2024 CBC W/ AUTO DIFF nucleated red blood cells # 0.00 k/uL Not Available [facility] ([facility]) [address] [place] [address] [place], [address], 08/13/2024 19:41:54 08/13/20 24 08/13/2024 CBC W/ AUTO DIFF manual differential NO Not Available [facility] ([facility]) [address] [place] [address] [place], [address], 08/13/2024 19:41:54 08/13/20 24 08/13/2024 CBC W/ AUTO DIFF note Unles s other muñoz noted testi ng perfo [facility]med at: [facility] [place] [address] [place] [address] Tony young MD Not Available [facility]) [address] [place] [address] [place], [address], 08/13/2024 19:41:54 08/13/20 24 08/13/2024 T4 FREE T4 free 0.92 NG/dL 0.78-2 .19 Not Available [facility]) [address] [place] [address] [place], [address], 08/13/2024 20:13:15 08/13/20 24 08/13/2024 T4 FREE note Unles s other muñoz noted testi ng perfo rmed at: [facility] [place] [address] [place] [address] Tony young MD Not Available [facility]) [address] [place] [address] [place], [address], 08/13/2024 20:13:15 08/13/20 24 08/13/2024 IRON STUDY W FE/TI BC/UI BC/%S AT iron 95 ug/dL 37-170 Not Available [facility]) [address] [place] [address] [place], [address], 08/13/2024 20:16:27 08/13/20 24 08/13/2024 IRON STUDY W FE/TI BC/UI BC/%S AT total iron bind cap. 334 ug/dL 265-49 7 Not Available [facility]) [address] [place] [address] [place], [address], 08/13/2024 20:16:27 08/13/20 24 08/13/2024 IRON STUDY W FE/TI BC/UI BC/%S AT unsaturated iron binding cap 239 ug/dL 150-37 5 Not Available [facility]) [address] [place] [address] [place], [address], 08/13/2024 20:16:27 08/13/20 24 08/13/2024 IRON STUDY W FE/TI BC/UI BC/%S AT % saturation 28 % 15-55 Not Available [facility]) [address] [place] [address] [place], [address], 08/13/2024 20:16:27 08/13/20 24 08/13/2024 IRON STUDY W FE/TI BC/UI BC/%S AT note Unles s other muñoz noted testi ng perfo rmed at: [facility] [address] [place] [address] Tony young MD Not Available [facility]) [address] [facility] [place], [address], 08/13/2024 20:16:27 08/13/20 24 08/13/2024 COMP METAB OLIC PANEL sodium 134 mmol/ L 137-14 7 low Not Available [facility]) [address] [facility] [place], [address], 08/13/2024 20:18:37 08/13/20 24 08/13/2024 COMP METAB OLIC PANEL potassium 4.3 mmol/ L 3.5-5. 1 Not Available [facility]) [address] [facility] [place], [address], 08/13/2024 20:18:37 08/13/20 24 08/13/2024 COMP METAB OLIC PANEL chloride 99 mmol/ L 98-110 Not Available [facility]) [address] [facility] [place], [address], 08/13/2024 20:18:37 08/13/20 24 08/13/2024 COMP METAB OLIC PANEL carbon dioxide 31 mmol/ L 21-30 high Not Available [facility]) [address] [place] [address] [place], [address], 08/13/2024 20:18:37 08/13/20 24 08/13/2024 COMP METAB OLIC PANEL anion gap 4 mmol/ L 6-14 low Not Available [facility]) [address] [facility] [place], [address], 08/13/2024 20:18:37 08/13/20 24 08/13/2024 COMP METAB OLIC PANEL glucose 75 mg/dL 70-115 Not Available [facility]) [address] [place] [address] [place], [address], 08/13/2024 20:18:37 08/13/20 24 08/13/2024 COMP METAB OLIC PANEL BUN 8 mg/dL 7-17 Not Available [facility]) [address] [place] [address] [place], [address], 08/13/2024 20:18:37 08/13/20 24 08/13/2024 COMP METAB OLIC PANEL creatinine 0.6 mg/dL 0.5-1. 5 Not Available [facility]) [address] [place] [address] [place], [address], 08/13/2024 20:18:37 08/13/20 24 08/13/2024 COMP METAB OLIC PANEL BUN/creatini ne ratio 13 10-20 Not Available [facility]) [address] [place] [address] [place], [address], 08/13/2024 20:18:37 08/13/20 24 08/13/2024 COMP METAB OLIC PANEL glom filtration rate 104 mL/mi n >60- GFR LIMIT ATION : The eGFR equat ion CKD-E PI 2020 is not appli cable for pedia tric patie nts or great er than 90 years of age. The follo wing condi tions may alter the GFR resul t: extre mes in body size, malnu triti on or obesi ty, skele avtar muscl e disea se, parap legia or quadr ipleg ia, veget andrez diet or rapid ly ash ing kiney funct ion. Not Available [facility]) [address] [place] [address] [place], [address], 08/13/2024 20:18:37 08/13/20 24 08/13/2024 COMP METAB OLIC PANEL osmolality (calculated) 276 mosmo l/kg 275-30 1 OSMOL ALITY IS A CALCU LATIO N UTILI ZING THE SERUM /PLAS MA SODIU M, GLUCO SE AND UREA NITRO GEN (BUN) LEVEL S. FOR THE MOST ACCUR ATE RESUL T A MEASU RED SERUM OSMOL ALITY IS SUGGE STED. Not Available [facility]) [address] [facility] [place], [address], 08/13/2024 20:18:37 08/13/20 24 08/13/2024 COMP METAB OLIC PANEL total protein 7.8 g/dL 6.2-8. 2 Not Available [facility]) [address] [place] [address] [place], [address], 08/13/2024 20:18:37 08/13/20 24 08/13/2024 COMP METAB OLIC PANEL albumin 4.6 g/dL 3.5-5. 0 Not Available [facility]) [address] [place] [address] [place], [address], 08/13/2024 20:18:37 08/13/20 24 08/13/2024 COMP METAB OLIC PANEL calcium 9.7 mg/dL 8.5-10 .8 Not Available [facility] ([facility]) [address] [place] [address] [place], [address], 08/13/2024 20:18:37 08/13/20 24 08/13/2024 COMP METAB OLIC PANEL bilirubin total 0.2 mg/dL 0.2-1. 3 Not Available [facility]) [address] [place] [address] [place], [address], 08/13/2024 20:18:37 08/13/20 24 08/13/2024 COMP METAB OLIC PANEL AST (SGOT) 43 IU/L 14-36 high Not Available [facility]) [address] [place] [address] [place], [address], 08/13/2024 20:18:37 08/13/20 24 08/13/2024 COMP METAB OLIC PANEL ALT (SGPT) 39 IU/L 0-35 high Pleas e note new refer ence inter sohail for ALT. Due to a recen t manuf actur er metho dolog y ash e, the refer ence inter sohail for ALT is lower effec tive January 14, 2021. Not Available [facility]) [address] [facility] [place], [address], 08/13/2024 20:18:37 08/13/20 24 08/13/2024 COMP METAB OLIC PANEL alk phosphatase 143 IU/L 38-126 high Not Available [facility] ([facility]) [address] [facility] [place], [address], 08/13/2024 20:18:37 08/13/20 24 08/13/2024 COMP METAB OLIC PANEL note Unles s other muñoz noted testi ng perfo rmed at: [facility] [address] [place] [address] Tony young MD Not Available [facility]) [address] [facility] [place], [address], 08/13/2024 20:18:37 08/13/20 24 08/13/2024 LIPID PANEL cholesterol 261 mg/dL 0-200 high Not Available [facility] ([facility]) [address] [place] [address] [place], [address], 08/13/2024 20:18:38 08/13/20 24 08/13/2024 LIPID PANEL HDL 79 mg/dL 40- Not Available [facility] ([facility]) [address] [place] [address] [place], [address], 08/13/2024 20:18:38 08/13/20 24 08/13/2024 LIPID PANEL total chol/HDL ratio 3.3 0-4 Not Available [facility] ([facility]) [address] [place] [address] [place], [address], 08/13/2024 20:18:38 08/13/20 24 08/13/2024 LIPID PANEL triglyceride 154 mg/dL 35-135 high Not Available [facility]) [address] [facility] [place], [address], 08/13/2024 20:18:38 08/13/20 24 08/13/2024 LIPID PANEL LDL calculated 151 mg/dL 0-130 high Not Available [facility]) [address] [facility] [place], [address], 08/13/2024 20:18:38 08/13/20 24 08/13/2024 LIPID PANEL VLDL calculated 31 mg/dL 0-40 Not Available [facility]) [address] [place], [address], 08/13/2024 20:18:38 08/13/20 24 08/13/2024 LIPID PANEL note Unles s other muñoz noted testi ng perfo rmed at: [facility] [address] [place] [address] Tony young MD Not Available [facility]) [address] [facility], [address], 08/13/2024 20:18:38 08/13/20 24 08/13/2024 SINTIA TIN ferritin 31 NG/mL 3-105 Not Available [facility]) [address] [place] [address] [place], [address], 08/13/2024 20:21:50 08/13/20 24 08/13/2024 SINTIA TIN note Unles s other muñoz noted testi ng perfo rmed at: [facility] [address] [place] [address] Tony young MD Not Available [facility]) [address] [place] [address] [place], [address], 08/13/2024 20:21:50 08/13/20 24 08/13/2024 TSH thyroid stim hormone 2.76 uIU/m L 0.465- 4.68 Not Available [facility]) [address] [place], [address], 08/13/2024 20:48:54 08/13/20 24 08/13/2024 TSH note Unles s other muñoz noted testi ng perfo rmed at: [facility] [address] [place] [address] Tony young MD Not Available [facility]) [address] [place] [address] [place], [address], 08/13/2024 20:48:54 01/23/20 25 01/23/2025 FE+TI BC+FE R iron bind.cap.(TI BC) 306 ug/dL 250-45 0 normal Not Available [facility]) [address] [place], [address], 01/25/2025 06:56:46 01/23/20 25 01/23/2025 FE+TI BC+FE R UIBC 216 ug/dL 131-42 5 normal Not Available [facility] ([facility]) [address] [place], [address], 01/25/2025 06:56:46 01/23/20 25 01/23/2025 FE+TI BC+FE R iron 90 ug/dL 27-159 normal Not Available [facility] ([facility]) [address] [place], [address], 01/25/2025 06:56:46 01/23/20 25 01/23/2025 FE+TI BC+FE R iron saturation 29 % 15-55 normal Not Available [facility] ([facility]) [address] [place], [address], 01/25/2025 06:56:46 01/23/2001/23/2025 FE+TI BC+FE R ferritin 109 NG/mL 15-150 normal Not Available [facility] ([facility]) [address] [place], [address], 01/25/2025 06:56:46 01/23/2001/23/2025 CBC WITH DIFFE RENTI AL/PL ATELE T WBC 4.4 x10e3 /uL 3.4-10 .8 normal Not Available [facility] ([facility]) [address] [place], [address], 01/25/2025 06:56:47 01/23/2001/23/2025 CBC WITH DIFFE RENTI AL/PL ATELE T RBC 3.83 x10e6 /uL 3.77-5 .28 normal Not Available [facility] ([facility]) [address] [place], [address], 01/25/2025 06:56:47 01/23/2001/23/2025 CBC WITH DIFFE RENTI AL/PL ATELE T hemoglobin 11.8 g/dL 11.1-1 5.9 normal Not Available [facility] ([facility]) [address] [place], [address], 01/25/2025 06:56:47 01/23/2001/23/2025 CBC WITH DIFFE RENTI AL/PL ATELE T hematocrit 36.6 % 34.0-4 6.6 normal Not Available [facility] ([facility]) [address] [place], [address], 01/25/2025 06:56:47 01/23/2001/23/2025 CBC WITH DIFFE RENTI AL/PL ATELE T MCV 96 fL 79-97 normal Not Available [facility] ([facility]) [address] [place], [address], 01/25/2025 06:56:47 01/23/2001/23/2025 CBC WITH DIFFE RENTI AL/PL ATELE T MCH 30.8 pg 26.6-3 3.0 normal Not Available [facility] ([facility]) [address] [facility], [place], [address], 01/25/2025 06:56:47 01/23/20 25 01/23/2025 CBC WITH DIFFE RENTI AL/PL ATELE T MCHC 32.2 g/dL 31.5-3 5.7 normal Not Available [facility] ([facility]) [address] [facility], [place], [address], 01/25/2025 06:56:47 01/23/2001/23/2025 CBC WITH DIFFE RENTI AL/PL ATELE T RDW 12.3 % 11.7-1 5.4 Not Available [facility] ([facility]) [address] [facility], [place], [address], 01/25/2025 06:56:47 01/23/2001/23/2025 CBC WITH DIFFE RENTI AL/PL ATELE T platelets 320 x10e3 /uL 150-45 0 normal Not Available [facility] ([facility]) [address] [facility], [place], [address], 01/25/2025 06:56:47 01/23/2001/23/2025 CBC WITH DIFFE RENTI AL/PL ATELE T neutrophils 57 % not estab. normal Not Available [facility] ([facility]) [address] [facility], [place], [address], 01/25/2025 06:56:47 01/23/2001/23/2025 CBC WITH DIFFE RENTI AL/PL ATELE T lymphs 32 % not estab. normal Not Available [facility] ([facility]) [address] [facility], [place], [address], 01/25/2025 06:56:47 01/23/2001/23/2025 CBC WITH DIFFE RENTI AL/PL ATELE T monocytes 7 % not estab. normal Not Available [facility] ([facility]) [address] [place], [address], 01/25/2025 06:56:47 01/23/20 25 01/23/2025 CBC WITH DIFFE RENTI AL/PL ATELE T eos 3 % not estab. normal Not Available [facility] ([facility]) [address] [place], [address], 01/25/2025 06:56:47 01/23/20 25 01/23/2025 CBC WITH DIFFE RENTI AL/PL ATELE T basos 1 % not estab. normal Not Available [facility] ([facility]) [address] [facility], [place], [address], 01/25/2025 06:56:47 01/23/20 25 01/23/2025 CBC WITH DIFFE RENTI AL/PL ATELE T immature cells [employer] Not Available [facility] ([facility]) [address] [place], [address], 01/25/2025 06:56:47 01/23/20 25 01/23/2025 CBC WITH DIFFE RENTI AL/PL ATELE T neutrophils (absolute) 2.5 x10e3 /uL 1.4-7. 0 normal Not Available [facility] ([facility]) [address] [place], [address], 01/25/2025 06:56:47 01/23/20 25 01/23/2025 CBC WITH DIFFE RENTI AL/PL ATELE T lymphs (absolute) 1.4 x10e3 /uL 0.7-3. 1 normal Not Available [facility] ([facility]) [address] [place], [address], 01/25/2025 06:56:47 01/23/20 25 01/23/2025 CBC WITH DIFFE RENTI AL/PL ATELE T monocytes(ab solute) 0.3 x10e3 /uL 0.1-0. 9 normal Not Available [facility] ([facility]) [address] [place], [address], 01/25/2025 06:56:47 01/23/2001/23/2025 CBC WITH DIFFE RENTI AL/PL ATELE T eos (absolute) 0.1 x10e3 /uL 0.0-0. 4 normal Not Available [facility] ([facility]) [address] [facility], [place], [address], 01/25/2025 06:56:47 01/23/2001/23/2025 CBC WITH DIFFE RENTI AL/PL ATELE T baso (absolute) 0.0 x10e3 /uL 0.0-0. 2 normal Not Available [facility] ([facility]) [address] [place], [address], 01/25/2025 06:56:47 01/23/2001/23/2025 CBC WITH DIFFE RENTI AL/PL ATELE T immature granulocytes 0 % not estab. Not Available [facility] ([facility]) [address] [place], [address], 01/25/2025 06:56:47 01/23/2001/23/2025 CBC WITH DIFFE RENTI AL/PL ATELE T immature grans (abs) 0.0 x10e3 /uL 0.0-0. 1 Not Available [facility] ([facility]) [address] [place], [address], 01/25/2025 06:56:47 01/23/2001/23/2025 CBC WITH DIFFE RENTI AL/PL ATELE T NRBC [employer] Not Available [facility] ([facility]) [address] [place], [address], 01/25/2025 06:56:47 01/23/2001/23/2025 CBC WITH DIFFE RENTI AL/PL JUANA Guy hematology comments: [employer] Not Available [facility] ([facility]) [address] [facility], [place], [address], 01/25/2025 06:56:47 01/23/20 25 01/23/2025 COMP. METAB OLIC PANEL (14) glucose 76 mg/dL 70-99 normal Not Available [facility] ([facility]) [address] [facility] [place], [address], 01/25/2025 06:56:49 01/23/20 25 01/23/2025 COMP. METAB OLIC PANEL (14) BUN 11 mg/dL 6-24 normal Not Available [facility] ([facility]) [address] [facility], [place], [address], 01/25/2025 06:56:49 01/23/20 25 01/23/2025 COMP. METAB OLIC PANEL (14) creatinine 0.73 mg/dL 0.57-1 .00 normal Not Available [facility] ([facility]) [address] [facility] [place], [address], 01/25/2025 06:56:49 01/23/20 25 01/23/2025 COMP. METAB OLIC PANEL (14) BUN/creatini ne ratio 15 9-23 normal Not Available [facility] ([facility]) [address] [facility] [place], [address], 01/25/2025 06:56:49 01/23/20 25 01/23/2025 COMP. METAB OLIC PANEL (14) sodium 129 mmol/ L 134-14 4 below low normal Not Available [facility] ([facility]) [address] [facility] [place], [address], 01/25/2025 06:56:49 01/23/20 25 01/23/2025 COMP. METAB OLIC PANEL (14) potassium 4.5 mmol/ L 3.5-5. 2 normal Not Available [facility] ([facility]) [address] [place], [address], 01/25/2025 06:56:49 01/23/20 25 01/23/2025 COMP. METAB OLIC PANEL (14) chloride 93 mmol/ L 96-106 below low normal Not Available [facility] ([facility]) [address] [place], [address], 01/25/2025 06:56:49 01/23/20 25 01/23/2025 COMP. METAB OLIC PANEL (14) carbon dioxide, total 23 mmol/ L 20-29 normal Not Available [facility] ([facility]) [address] [place], [address], 01/25/2025 06:56:49 01/23/20 25 01/23/2025 COMP. METAB OLIC PANEL (14) calcium 9.6 mg/dL 8.7-10 .2 normal Not Available [facility] ([facility]) [address] [place], [address], 01/25/2025 06:56:49 01/23/20 25 01/23/2025 COMP. METAB OLIC PANEL (14) protein, total 7.2 g/dL 6.0-8. 5 normal Not Available [facility] ([facility]) [address] [facility] [place], [address], 01/25/2025 06:56:49 01/23/20 25 01/23/2025 COMP. METAB OLIC PANEL (14) albumin 4.6 g/dL 3.8-4. 9 normal Not Available [facility] ([facility] [address] [facility] [place], [address], 01/25/2025 06:56:49 01/23/20 25 01/23/2025 COMP. METAB OLIC PANEL (14) globulin, total 2.6 g/dL 1.5-4. 5 Not Available [facility] ([facility]) [address] [place], [address], 01/25/2025 06:56:49 01/23/20 25 01/23/2025 COMP. METAB OLIC PANEL (14) bilirubin, total 0.3 mg/dL 0.0-1. 2 normal Not Available [facility] ([facility]) [address] [facility] [place], [address], 01/25/2025 06:56:49 01/23/20 25 01/23/2025 COMP. METAB OLIC PANEL (14) alkaline phosphatase 169 IU/L 44-121 above high normal Not Available [facility] ([facility]) [address] [place], [address], 01/25/2025 06:56:49 01/23/20 25 01/23/2025 COMP. METAB OLIC PANEL (14) AST (SGOT) 28 IU/L 0-40 normal Not Available [facility] ([facility]) [address] [place], [address], 01/25/2025 06:56:49 01/23/20 25 01/23/2025 COMP. METAB OLIC PANEL (14) ALT (SGPT) 25 IU/L 0-32 normal Not Available [facility] ([facility]) [address] [place], [address], 01/25/2025 06:56:49 01/23/20 25 01/23/2025 LIPID PANEL cholesterol, total 255 mg/dL 100-19 9 above high normal Not Available [facility] ([facility]) [address] [place], [address], 01/25/2025 06:56:50 01/23/20 25 01/23/2025 LIPID PANEL triglyceride s 87 mg/dL 0-149 normal Not Available [facility] ([facility]) [address] [place], [address], 01/25/2025 06:56:50 01/23/20 25 01/23/2025 LIPID PANEL HDL cholesterol 70 mg/dL >39 normal Not Available [facility]) [address] [place], [address], 01/25/2025 06:56:50 01/23/20 25 01/23/2025 LIPID PANEL VLDL cholesterol harrison 15 mg/dL 5-40 Not Available [facility] ([facility]) [address] [place], [address], 01/25/2025 06:56:50 01/23/20 25 01/23/2025 LIPID PANEL LDL chol calc ([facility]) 170 mg/dL 0-99 above high normal Not Available [facility] ([facility]) [address] [place], [address], 01/25/2025 06:56:50 01/23/20 25 01/23/2025 LIPID PANEL LDL calc comment: [employer] Not Available [facility] ([facility]) [address] [place], [address], 01/25/2025 06:56:50 01/23/20 25 01/22/2025 HCV RNA BY PCR, QN RFX RUBENS test information: COMMEN T The quant itati ve range of this assay is 15 IU/mL to 100 ramon on IU/mL . Not Available [facility] ([facility]) [address] [place], [address], 01/25/2025 06:56:51 01/23/2001/23/2025 HCV RNA BY PCR, QN RFX RUBENS hepatitis C quantitation [id number] 0 IU/mL Not Available [facility] ([facility]) [address] [place], [address], 01/25/2025 06:56:51 01/23/20 25 01/23/2025 HCV RNA BY PCR, QN RFX RUBENS HCV log10 6.100 log10 _IU/m L Not Available [facility] ([facility]) [address] [facility] [place], [address], 01/25/2025 06:56:51 01/23/2001/23/2025 HCV RNA BY PCR, QN RFX RUBENS HCV genotype COMMEN T To be perfo rmed on this speci men. Not Available [facility] ([facility]) [address] [facility], [place], [address], 01/25/2025 06:56:51 01/23/2001/24/2025 HCV RNA BY PCR, QN RFX RUBENS hepatitis C genotype 1A Not Available [facility] ([facility]) [address] [facility], [place], [address], 01/25/2025 06:56:51 01/23/2001/23/2025 VITAM IN B12 AND FOLAT E vitamin B12 645 pg/mL 232-12 45 normal Not Available [facility] ([facility]) [address] [facility], [place], [address], 01/25/2025 06:56:52 01/23/2001/23/2025 VITAM IN B12 AND FOLAT E folate (folic acid), serum 13.4 NG/mL >3.0 normal A serum folat e rohan ntrat ion of less than 3.1 ng/mL is consi dered to repre sent clini harrison defic iency . Not Available [facility] ([facility]) [address] [facility], [place], [address], 01/25/2025 06:56:52 01/23/2001/23/2025 HEMOG LOBIN A1C hemoglobin A1C 5.4 % 4.8-5. 6 normal Predi abete s: 5.7 - 6.4 Diabe fabiola: >6.4 Glyce daryl contr ol for adult s with diabe fabiola: <7.0 Not Available [facility] ([facility]) [address] [facility], [place], [address], 01/25/2025 06:56:53 01/23/20 25 01/23/2025 TSH RFX ON ABNOR MAL TO FREE T4 TSH 0.872 uIU/m L 0.450- 4.500 normal Not Available [facility] ([facility]) [address], [place], [address], 01/25/2025 06:56:54 02/13/20 25 02/12/2025 BASIC METAB OLIC PANEL sodium 141 mmol/ L 136-14 5 Not Available [facility] ([facility]) [address] [facility], [place], [address], 02/12/2025 08:41:43 02/13/20 25 02/12/2025 BASIC METAB OLIC PANEL potassium 3.5 mmol/ L 3.6-5. 0 low Not Available [facility] ([facility]) [address] [place], [address], 02/12/2025 08:41:43 02/13/20 25 02/12/2025 BASIC METAB OLIC PANEL chloride 104 mmol/ L 98-107 Not Available [facility] ([facility]) [address] [place], [address], 02/12/2025 08:41:43 02/13/20 25 02/12/2025 BASIC METAB OLIC PANEL carbon dioxide 27.9 mmol/ L 21.0-3 2.0 Not Available [facility] ([facility]) [address] [place], [address], 02/12/2025 08:41:43 02/13/20 25 02/12/2025 BASIC METAB OLIC PANEL anion gap 12.6 Not Available [facility] ([facility]) [address] [place], [address], 02/12/2025 08:41:43 02/13/20 25 02/12/2025 BASIC METAB OLIC PANEL glucose 64 mg/dL 70-120 low Not Available [facility] ([facility] [address] [place], [address], 02/12/2025 08:41:43 02/13/20 25 02/12/2025 BASIC METAB OLIC PANEL BUN 9 mg/dL 7-18 Not Available [facility] ([facility]) [address], [place], [address], 02/12/2025 08:41:43 02/13/20 25 02/12/2025 BASIC METAB OLIC PANEL creatinine 0.8 mg/dL 0.6-1. 3 Not Available [facility] ([facility]) [address] [facility], [place], [address], 02/12/2025 08:41:43 02/13/20 25 02/12/2025 BASIC METAB OLIC PANEL glomerular filtration rate 85 mlper min 60- GFR LIMIT ATION : The eGFR equat ion CKD-E PI 2020 is not appli cable for pedia tric patie nts or great er than 90 years of age. The follo wing condi tions may alter the GFR resul t: extre mes in body size, malnu triti on or obesi ty, skele avtar muscl e disea se, parap legia or quadr ipleg ia, veget andrez diet or rapid ly ash ing kiney funct ion. Not Available [facility] ([facility]) [address], [place], [address], 02/12/2025 08:41:43 02/13/20 25 02/12/2025 BASIC METAB OLIC PANEL osmolality (calculated) 290 mOsm/ kg 275-30 1 OSMOL ALITY IS A CALCU LATIO N UTILI ZING THE SERUM /PLAS MA SODIU M, GLUCO SE AND UREA NITRO GEN (BUN) LEVEL S. FOR THE MOST ACCUR ATE RESUL T A MEASU RED SERUM OSMOL ALITY IS SUGGE STED. Not Available [facility] ([facility]) [address], [place], [address], 02/12/2025 08:41:43 02/13/20 25 02/12/2025 BASIC METAB OLIC PANEL calcium 9.7 mg/dL 8.5-10 .5 Not Available [facility] ([facility]) [address] , [place], [address], 02/12/2025 08:41:43 02/13/20 25 02/12/2025 HEPAT IC FUNCT IONAL PANEL total protein 7.7 g/dL 6.4-8. 2 Not Available [facility] ([facility]) [address] , [place], [address], 02/12/2025 12:57:36 02/13/20 25 02/12/2025 HEPAT IC FUNCT IONAL PANEL albumin 3.9 g/dL 3.4-5. 0 Not Available [facility] ([facility]) [address], [place], [address], 02/12/2025 12:57:36 02/13/20 25 02/12/2025 HEPAT IC FUNCT IONAL PANEL bilirubin direct 0.1 O.oo-0 .30 Not Available [facility] ([facility]) [address], [place], [address], 02/12/2025 12:57:36 02/13/20 25 02/12/2025 HEPAT IC FUNCT IONAL PANEL bilirubin total 0.30 mg/dL 0.10-1 .00 Not Available [facility] ([facility]) [address] , [place], [address], 02/12/2025 12:57:36 02/13/20 25 02/12/2025 HEPAT IC FUNCT IONAL PANEL bilirubin indirect 0.20 Not Available [facility] ([facility]) [address], [place], [address], 02/12/2025 12:57:36 02/13/20 25 02/12/2025 HEPAT IC FUNCT IONAL PANEL AST (SGOT) 26 U/L 0-37 Not Available [facility] ([facility]) [address] , [place], [address], 02/12/2025 12:57:36 02/13/20 25 02/12/2025 HEPAT IC FUNCT IONAL PANEL ALT (SGPT) 34 U/L 0-65 Not Available [facility] ([facility]) [address], [place], [address], 02/12/2025 12:57:36 02/13/20 25 02/12/2025 HEPAT IC FUNCT IONAL PANEL alk phosphatase 160 U/L 46-116 high Not Available [facility] ([facility]) [address], [place], [address], 02/12/2025 12:57:36 02/13/20 25 02/12/2025 PT (PROT HROMB IN TIME) W INR prothrombin time 10.0 secon ds 9.3-11 .4 Not Available [facility] ([facility]) [address], [place], [address], 02/12/2025 13:01:57 02/13/20 25 02/12/2025 PT (PROT HROMB IN TIME) W INR INR 0.9 ratio 0.97-1 .05 low INR is inten ded to be used ONLY for patie nts on stabl e oral antic oagul ant thera py. Thera peuti c Range s: 2.0-3 .0 Usual Thera peuti c Range 2.5-3 .5 For patie nts with histo ry of Multi ple Deep Vein Throm bus or Mecha nical Heart Valve s Not Available [facility] ([facility]) [address], [place], [address], 02/12/2025 13:01:57 02/13/20 25 02/13/2025 HBV CORE AB, IGG/I GM DIFF hep B core Ab, total POSITI VE negati ve delta Perfo rmed at: [facility] [address] [address] Lab Direc tor: Jong resendiz PhD, Phone : [phone] Not Available [facility] ([facility]) [address] [facility], [place], [address], 02/13/2025 07:11:00 02/13/20 25 02/13/2025 HBV CORE AB, IGG/I GM DIFF hep B core Ab, IgM NEGATI VE negati ve Not Available [facility] ([facility]) [address] [facility], [place], [address], 02/13/2025 07:11:00 02/13/20 25 02/13/2025 HEP B S AB RADHA hep B surface Ab 633.0 mIU/m L immuni ty>10 Statu s of Immun ity Anti- HBs Level ----- ----- ----- --- ----- ----- ---- Incon siste nt with Immun ity 0.0 - 10.0 Consi stent with Immun ity >10.0 Perfo rmed at: [facility] [address] [place], [place] [address] Lab Direc tor: Jong resendiz PhD, Phone : [phone] Not Available [facility] ([facility]) [address] [place], [address], 02/13/2025 08:13:41 02/13/2002/13/2025 HIV AB/P2 4 AG WITH REFLE X HIV screen 4TH generation wrfx Non Reacti ve non reacti ve HIV-1 /HIV- 2 antib odies and HIV-1 p24 antig en were NOT detec taras. There is no labor atory evide nce of HIV infec tion. HIV Negat kristie Perfo rmed at: [facility] n [address] [place], [place] [id number] Lab Direc tor: Jong resendiz PhD, Phone : [phone] Not Available [facility] ([facility]) [address] [place], [address], 02/13/2025 08:13:42 02/13/20 25 02/13/2025 HEPAT ITIS B SURFA CE AG EIA HBsAg screen Negati ve negati ve Perfo rmed at: [facility] [address] [facility], [place] [address] Lab Direc tor: Jong resendiz PhD, Phone : [phone] Not Available [facility] ([facility]) [address] , [place], [address], 02/13/2025 08:13:42 02/13/20 25 02/15/2025 OSMOL ALITY BLOOD osmolality blood 275 mosmo l/kg 275-29 5 Perfo rmed at: [facility] [place] [address] [facility] [place] [address] Lab Direc tor: Sharla frey MD, Phone : [phone] Not Available [facility] ([facility]) [address] , [place], [address], 02/15/2025 06:11:06 02/13/2002/15/2025 HCV FIBRO SURE fibrosis stage COMMEN T F0 - No fibro sis Not Available [facility] ([facility]) [address] , [place], [address], 02/15/2025 06:11:08 02/13/20 25 02/15/2025 HCV FIBRO SURE necroinflama tion activity scor 0.09 0.00-0 .17 Not Available [facility] ([facility]) [address] , [place], [address], 02/15/2025 06:11:08 02/13/20 25 02/15/2025 HCV FIBRO SURE necroinflama tion activity grad A0-NO ACTIVI TY Not Available [facility] ([facility]) [address] , [place], [address], 02/15/2025 06:11:08 02/13/20 25 02/15/2025 HCV FIBRO SURE alpha 2-macroglobu lester, qn 238 mg/dL 110-27 6 Not Available [facility] ([facility]) [address] [place], [address], 02/15/2025 06:11:08 02/13/20 25 02/15/2025 HCV FIBRO SURE haptoglobin 95 mg/dL 33-346 Not Available [facility] ([facility]) [address] [place], [address], 02/15/2025 06:11:08 02/13/20 25 02/15/2025 HCV FIBRO SURE apolipoprote in A-1 200 mg/dL 116-20 9 Not Available [facility] ([facility]) [address] [place], [address], 02/15/2025 06:11:08 02/13/20 25 02/15/2025 HCV FIBRO SURE bilirubin, total 0.2 mg/dL 0.0-1. 2 Not Available [facility] ([facility]) [address] [place], [address], 02/15/2025 06:11:08 02/13/20 25 02/15/2025 HCV FIBRO SURE GGT 45 IU/L 0-60 Not Available [facility] ([facility]) [address] [place], [address], 02/15/2025 06:11:08 02/13/20 25 02/15/2025 HCV FIBRO SURE ALT (SGPT) p5p 25 IU/L 0-40 Not Available [facility] ([facility]) [address] [place], [address], 02/15/2025 06:11:08 02/13/20 25 02/15/2025 HCV FIBRO SURE interpretati ons COMMEN T . Quant itati ve resul ts of 6 bioch emica l tests are wan zed using a compu tatio nal algor ithm to provi de a quant itati ve surro gate marke r (0.0- 1.0) for liver fibro sis (META VIR F0- F4) and for necro infla mmato ry activ ity (META VIR A0-A3 ). Not Available [facility] ([facility]) [address] , [place], [address], 02/15/2025 06:11:08 02/13/2002/15/2025 HCV FIBRO SURE fibrosis scoring: COMMEN T . <=0.2 1 = Stage F0 - No fibro sis 0.21 - 0.27 = Stage F0 - F1 0.27 - 0.31 = Stage F1 - Clay l fibro sis 0.31 - 0.48 = Stage F1 - F2 0.48 - 0.58 = Stage F2 - Bridg ing fibro sis with few septa 0.58 - 0.72 = Stage F3 - Bridg ing fibro sis with many septa 0.72 - 0.74 = Stage F3 - F4 >0.74 = Stage F4 - Cirrh osis Not Available [facility] ([facility]) [address] , [place], [address], 02/15/2025 06:11:08 02/13/2002/15/2025 HCV FIBRO SURE fibrosis score 0.13 0.00-0 .21 Not Available [facility] ([facility]) [address], [place], [address], 02/15/2025 06:11:08 02/13/2002/15/2025 HCV FIBRO SURE necroinflamm ation act score COMMEN T . <0.17 = Grade A0 - No Activ ity 0.17 - 0.29 = Grade A0 - A1 0.29 - 0.36 = Grade A1 - Minim al activ ity 0.36 - 0.52 = Grade A1 - A2 0.52 - 0.60 = Grade A2 - Moder ate activ ity 0.60 - 0.62 = Grade A2 - A3 >0.62 = Grade A3 - Sever e activ ity Not Available [facility] ([facility]) [address], [place], [address], 02/15/2025 06:11:08 02/13/20 25 02/15/2025 HCV FIBRO SURE limitations COMMEN T The negat kristie predi ctive value of a Fibro test score <0.31 (abse nce of clini alta signi fican t fibro sis) was 85% when roscoe red to liver biops y in 1,270 HCV infec taras patie nts with a 38% preva lence of signi fican t liver fibro sis (F2, 3 or 4). The posit kristie predi ctive value of a Fibro -test score >0.48 (F2, 3, 4) was 61% in that same patie nt cohor t. HCV Fibro SURE is not recom hayde d in patie nts with Gilbe rt Disea se, acute hemol ysis (e.g. HCV ribav irin thera py media taras hemol ysis) acute hepa- titis of the liver , extra - hepat ic candelario stasi s, trans plant patie nts, and/o r renal insuf ficie ncy patie nts. Any of these clini harrison situa tions may lead to inacc urate quant itati ve predi ction s of fibro sis and necro infla mmato ry activ ity in the liver . Not Available [facility] ([facility]) [address], [place], [address], 02/15/2025 06:11:08 02/13/20 25 02/15/2025 HCV FIBRO SURE comment: COMMEN T . This test was devel oped and its perfo rmanc e victoriano cteri stics deter mined by [facility]. It has not been clear ed or appro isa by the Food and Drug Admin istra tion. The FDA has deter mined that such clear ance or appro sohail is not neces vanessa. . For quest skyler sharpe this repor t pleas e conta ct custo juan servi ce at [phone]. Perfo rmed at: - [facility] [address] , [place] [address] Lab Direc tor: Sharla frey MD, Phone : [phone] Not Available [facility] ([facility]) [address], [place], [address], 02/15/2025 06:11:08 02/13/20 25 02/15/2025 HCV FIBRO SURE methodology: COMMTRENT T . The wan fabiola teste d are perfo rmed by Fibro Sure- Speci fic metho ds. Not inten ded for use with other diagn ostic consi derat ions. Not Available [facility] ([facility]) [address], [place], [address], 02/15/2025 06:11:08 03/11/20 25 03/12/2025 BASIC METAB OLIC PANEL (8) glucose 84 mg/dL 70-99 normal Not Available [facility] ([facility]) [address] [place], [address], 03/12/2025 06:37:39 03/11/20 25 03/12/2025 BASIC METAB OLIC PANEL (8) BUN 12 mg/dL 6-24 normal Not Available [facility] ([facility]) [address] [place], [address], 03/12/2025 06:37:39 03/11/20 25 03/12/2025 BASIC METAB OLIC PANEL (8) creatinine 0.80 mg/dL 0.57-1 .00 normal Not Available [facility] ([facility]) [address] [place], [address], 03/12/2025 06:37:39 03/11/20 25 03/12/2025 BASIC METAB OLIC PANEL (8) BUN/creatini ne ratio 15 9-23 normal Not Available [facility] ([facility]) [address] [place], [address], 03/12/2025 06:37:39 03/11/20 25 03/12/2025 BASIC METAB OLIC PANEL (8) sodium 129 mmol/ L 134-14 4 below low normal Not Available [facility] ([facility]) [address] [place], [address], 03/12/2025 06:37:39 03/11/20 25 03/12/2025 BASIC METAB OLIC PANEL (8) potassium 4.1 mmol/ L 3.5-5. 2 normal Not Available [facility] ([facility]) [address] [place], [address], 03/12/2025 06:37:39 03/11/20 25 03/12/2025 BASIC METAB OLIC PANEL (8) chloride 93 mmol/ L 96-106 below low normal Not Available [facility] ([facility]) [address] [facility] [place] [place], [address], 03/12/2025 06:37:39 03/11/20 25 03/12/2025 BASIC METAB OLIC PANEL (8) carbon dioxide, total 20 mmol/ L 20-29 normal Not Available [facility] ([facility]) [address] [place], [address], 03/12/2025 06:37:39 03/11/20 25 03/12/2025 BASIC METAB OLIC PANEL (8) calcium 10.0 mg/dL 8.7-10 .2 normal Not Available [facility] ([facility]) [address] [place], [address], 03/12/2025 06:37:39 08/13/20 24 08/13/2024 elect rocar diogr am No observ ation record ed. [facility]- Dept [address] [facility] [place], [address], 08/13/2024 16:48:12 08/20/20 24 08/21/2024 elect rocar diogr am No observ ation record ed. [facility] [place] [address], [place], [address], 08/21/2024 09:11:06 08/21/20 24 08/20/2024 elect luna escobar am No observ ation record ed. [facility] [place] [address], [place], [address], 08/21/2024 09:10:55 08/29/20 24 08/15/2024 XR, chest , 2 view No observ ation record ed. [facility] [address], [place], [address], 08/30/2024 10:54:05 01/23/20 25 07/15/[address] refer ral No observ ation record ed. [facility] [address] [place], [address], 03/31/2025 13:26:45 02/13/20 25 02/12/2025 chelo scrn mammo w/CAD bilat [facility] al [address] [place] [address] Phone: Fax: Name: JOANNA PELAEZ Exam Date: 025 : 966 Age 60 years Gender : F Access ion: [id number] Physic geeta: RASHEEDA WILLARD Y Facili ty: [facility] Facili ty HSV: Outpat ient Exam: CHELO SCRN MAMMO W/CAD BILAT Exam: 3-D screen ing mammog memo includ ing tomosy nthesi s and CAD (Compu ter Assist ed Detect ion). Clinic al indica tion: Asympt omatic screen ing exam Compar marie: Exams to 2020 TECHNI QUE: Routin e [...] Cutler 025 Thank you for referr ing JOANNA PELAEZ to [facility] ity Hospit al. Legall y authen ticate d by FAHAD CONTI 0 02-12 15:16: 38 CC'ed Logic: Orderi ng Provid er: PINO Loredo CC Provid er: PINO Loredo Attend ing Provid er: PINO Loredo Referr ing Provid er: PINO Loredo Admitt ing Provid er: PINO Loredo [email or web address] [facility] - Physical Therapy [address] [facility], [place], [address], 02/18/2025 14:12:43 02/29/2002/27/2025 US, liver [facility] ity Hospit al [address] [place] [address] Phone: Fax: Name: JOANNA PELAEZ Exam Date: 02/28/20 : 9[birth year] Age 60 years Gender : F Access ion: [id number] Physic geeta: CHRIS RODRÍGUEZ Facili ty: [facility] Facili ty HSV: Outpat ient Exam: LIVER ULTRAS OUND Ultras ound liver the right upper quadra nt HISTOR Y: Hepati tis C COMPAR MARIE: 12/25/19 TECHNI QUE: B-mode color Dopple r and [...] Filipe Stanley 02/29/20 Thank you for referr ing JOANNA PELAEZ to [facility] Hospit al. Legall y authen ticate d by SURINDER DEE 2025-0 6-06 14:53: 13 CC'ed Logic: Orderi ng Provid er: KATY PECK Attend ing Provid er: KATY PECK Admitt ing Provid er: KATY PECK [facility] [address], [place], [address], 02/28/2025 14:57:14 03/05/20 25 02/26/2025 home sleep study No observ ation record ed. [email or web address] Not Available 03/06 09:54:07 03/12/20 25 02/12/2025 compl ete PFT w/ post [facility] hodil ator rama metry * No observ ation record ed. [facility] [address] [place], [address], 03/12/2025 15:15:59 Result Notes None recorded. Problems Name Problem SNOMED Code Status Onset Date Resolution Date Notes Provider Name and Address Organization Details Recorded Time Sinus bradycardi a 07393677 Active 2023 Hang Yu MD [address] [facility], [place], [address], [place] & [place] 4 16:11:58 Chronic hepatitis C caused by Hepatitis C virus genotype 1a 500640157 Active 2024 Chris Rodríguez PA-C [address] [facility], [place], [address], [place] & [place] 5 10:25:29 Hepatitis B core antibody detected 362561153 Active 2024 Chris Rodríguez PA-C [address] [facility], [place], [address], [place] & [place] 5 10:49:43 Breasts asymmetric al 777399636 Active 2022 Joanie [place], [place] & [place] 3 10:22:55 Family history of malignant neoplasm of ovary 468677799 Active 2022 Joanie [place], [place] & [place] 3 10:23:06 Family history of breast cancer 188477228 Active 2022 Joanie Ordaz null, [place] & [place] 3 10:23:12 Acute type A viral hepatitis 94158596 Active 2022 Joanie Ordaz [place] & [place] 3 10:23:31 Viral hepatitis C 28023176 Active 2022 Joanie Ordaz [place] & [place] 3 10:23:37 Posttrauma tic stress disorder 69617744 Active 2022 Joaniesunil Ordaz [place] & [place] 3 10:23:44 Vertigo 782866030 Active 2022 Joan[place]unil [place], [place] - & [place] 3 10:23:51 MRI of head abnormal 156409139102 107 Active 2022 Joanie [place], [place] & [place] 3 10:24:01 Cerebrovas cular disease 11762992 Active 2022 Joan[place]il [place] & [place] 3 10:24:16 Vitamin D deficiency 75933898 Active 2022 Joan[place]il [place] & [place] 3 10:24:34 Essential hypertensi on 75044817 Active 2022 Joaniejohanna Ordaz [place] & [place] 3 10:24:39 Osteoarthr itis 465664981 Active 2022 Joaniesunil Ordaz [place] & [place] 3 10:24:47 Harmful pattern of use of cocaine 90061336 Active 2022 Joaniesunil Ordaz [place] & [place] 3 10:25:00 Anxiety 74622707 Active 2022 Joanie Ordaz null[place] & [place] 3 10:25:08 Panic attack 429474558 Active 2022 Joanie Ordaz [place] & [place] 3 10:25:14 Hyperlipid emia 88636442 Active 2022 Joanie Ordaz [place] 3 10:25:21 Chronic hepatitis 00187191 Active 2022 Archana Lizama NP [address] [place] [address], [address], [place], [address], [place] & [place] 3 11:17:17 Problem Notes None recorded. Procedures Surgical History Date Name Laterality Status Provider Name and Address Organization Details Recorded Time 02/13/20 25 Most Recent Mammogram completed Archana [place] [facility] & [place] 02/26/2025 09:42:52 10/26/19 25 Knee Surgery completed Sol Key [place] - [place] & [place] 01/22/2025 09:13:46 09/25/19 22 Joint Replacement completed Britt duran [place] [facility] & [place] 01/02/2023 09:40:19 02/26/20 19 Date of Last Colonoscopy completed Solis [place] [facility] & [place] 05/24/2023 16:44:37 02/26/20 19 Colonoscopy completed Solis Osuna [place] [facility] & [place] 08/05/2024 10:24:53 01/30/20 19 Date of Last Pap Smear completed Britt [place] [facility] & [place] 01/02/2023 09:40:06 12/18/19 19 completed Britt duran [place] & [place] 01/02/2023 09:40:06 09/25/19 19 biopsy of breast completed Archana HUTCHINS - [facility] & [place] 02/26/2025 09:44:02 09/25/19 15 Breast Surgery completed Britt duran [place] [facility] & [place] 01/02/2023 09:40:19 09/25/19 Other completed Britt Barboza HUBERT [facility] & [place] 01/02/2023 09:40:19 loop electrosurgical excision procedure of cervix completed Yee Barboza HBUERT [facility] & [place] 01/30/2023 15:18:49 lumpectomy of breast completed Solis Barboza [facility] & [place] 05/24/2023 16:39:16 Carpal tunnel surgery completed Yee Barboza HUBERT [facility] & [place] 01/30/2023 15:19:45 delivery completed Yee Barboza [facility] & [place] 01/30/2023 15:20:01 total shoulder replacement completed Chiquis HUTCHINS [facility] & [place] 08/20/2024 13:47:59 Imaging Results None recorded. Procedure [...] completed Not Available Not Available Not Available [facility] COVID-19 Antigen Rapid Home Test kit 01/16 completed Not Available Not Available Not Available Vitals Date Recorded Systolic And Diastolic Provider Name and Address Organization Details Last Updated DateTime 01/22/2025 151/88 mm[Hg] Umu Rascon PA-C [address] [facility], [place], [address], [facility] & [place] 01/22/2025 10:13:42 Date Recorded Body height Body mass index (BMI) Body weight Body temperature Heart rate Systolic And Diastolic Provider Name and Address Organization Details Last Updated DateTime 5 158.75 cm 22.9 kg/m2 69665.2 3 g 97.1 [degF] 55 /min 156/75 mm[Hg] Sol Makchelsey [facility] & [place] 5 09:25:56 Date Recorded Body height Body mass index (BMI) Body weight Body temperature Oxygen saturation Oxygen saturation in Arterial blood by Pulse oximetry Heart rate Provider Name and Address Organization Details Last Updated DateTime 5 158.75 cm 22.8 kg/m2 15641.7 9 g 97.2 [degF] 99 % 99 % 50 /min Lily Wilson [facility] & [place] 5 10:05:48 Date Recorded Body height Body mass index (BMI) Body weight Body temperature Oxygen saturation Oxygen saturation in Arterial blood by Pulse oximetry Heart rate Systolic And Diastolic Provider Name and Address Organization Details Last Updated DateTime 5 158.75 cm 22.7 kg/m2 07966.6 4 g 97.1 [degF] 97 % 97 % 70 /min 120/62 mm[Hg] Ashley Silvestre [facility] & [place] 5 11:26:15 Date Recorded Body height Body mass index (BMI) Body weight Body temperature Heart rate Systolic And Diastolic Provider Name and Address Organization Details Last Updated DateTime 5 158.75 cm 22.7 kg/m2 54759.7 4 g 97.9 [degF] 61 /min 127/76 mm[Hg] Sol Key [facility] & [place] 5 10:23:54 Date Recorded Body height Body mass index (BMI) Body weight Body temperature Oxygen saturation Oxygen saturation in Arterial blood by Pulse oximetry Heart rate Systolic And Diastolic Provider Name and Address Organization Details Last Updated DateTime 4 158.75 cm 21.8 kg/m2 51698.6 8 g 98.4 [degF] 96 % 96 % 60 /min 120/66 mm[Hg] Audrey Jeisno [facility] & [place] 4 11:53:15 Social History Question Answer Notes LastModified by Organizat ion Details LastModified Time Tobacco Smoking Status Never Smoker Britt duran [facility] & [place] 01/02/2023 09:40:15 Do You Have An Advance Directive? No [email or web address] Information not available 01/02/2023 Are You Blind Or Do You Have Difficulty Seeing? No [email or web address] Information not available 01/23/2025 Is Blood Transfusion Acceptable In An Emergency? Yes Information not available 01/22/2025 What Is Your Level Of Caffeine Consumption? Heavy [email or web address] Information not available 08/20/2024 In The 14 [...] Or Recreational Drugs Have You Used? Thc [email or web address] Information not available 08/20/2024 Have You Processed [...] available 01/22/2025 When Did You Quit Smoking? 6-10yearssincel astcigarette [email or web address] Information not available 01/02/2023 Are There Any [...] Do You Have A Medical Power Of Merchandising Manager? No Information not available 01/22/2025 What Was The Date Of Your Most Recent Tobacco Screening? 12/05/2022 Information not available 01/02/2023 How Many Children [...] Are You Passively Exposed To Smoke? No [email or web address] Information no t available 01/02/2023 How Much Tobacco Do You Smoke? No [email or web address] Information not available 01/02/2023 Do You Use Sunscreen Routinely? Yes Information not available 01/22/2025 Has Tobacco Cessation Counseling Been Provided? Yes [email or web address] Information not available 01/02/2023 How Many Years Have You Smoked Tobacco? 0 Information not available 01/02/2023 Have You Used IV Drugs? Yes 2015 [email or web address] Information not available 08/20/2024 Do You Have Difficulty Walking Or Climbing Stairs? No Information not available 01/22/2025 Are You Currently In School? No Information not available 01/22/2025 Sex: Unknown Functional Status Question Answer Note LastModified by Organizat ion Details LastModified Time Do you use any illicit or recreational drugs? No [email or web address] Information not available 01/23/2025 Do you or have you ever used any other forms of tobacco or nicotine? No [email or web address] Information not available 01/02/2023 What is your level of alcohol consumption? None [email or web address] Information not available 06/29/2022 Do you or have you ever used smokeless tobacco? [id number] [email or web address] Information not available 01/02/2023 Are you currently [...] 01/22/2025 What is your exercise level? None [email or web address] Information not available 01/23/2025 Mental Status Question Answer Note LastModified by Organizat ion Details LastModified Time Do you feel stressed (tense, restless, nervous, or anxious, or unable to sleep at night)? [id number] [email or web address] Information not available 01/02/2023 Do you have [...] available 12/05/2022 12:57:42 Medical History Condition Response Anxiety Disorder Y Autoimmune disease Y Arthritis Y Lung Disease Y Depression Y Substance Abuse Y High Cholesterol Y Hepatitis Y Liver Disease Y Heart Attack (PR) Y Rheumatoid Arthritis Y Hypertension Y Gynecological History Statement/Question Response [...] Archana [place] & [place] 03/26/2025 07:13:22 SARS-COV-2 (COVID-19) vaccine, UNSPECIFIED 2 completed Archana [place] 03/26/2025 07:13:22 SARS-COV-2 (COVID-19) vaccine, UNSPECIFIED 1 completed Archana [place] 03/26/2025 07:13:22 SARS-COV-2 (COVID-19) vaccine, UNSPECIFIED 1 completed Archana [place] 03/26/2025 07:13:22 Hep A, unspecified formulation 0 completed Archana [place] [facility] [place] [facility] & [place] 03/26/2025 07:13:22 Hep A, unspecified formulation 9 completed Archana [place] [facility] & [place] 03/26/2025 07:13:22 influenza, unspecified formulation 2 completed Archana [place] [facility] & [place] 03/26/2025 07:13:22 influenza, unspecified formulation 9 completed Archana [place] 03/26/2025 07:13:22 influenza, unspecified formulation 8 completed Archana [place] 03/26/2025 07:13:22 influenza, unspecified formulation 0 completed Archan[place] 03/26/2025 07:13:22 influenza, unspecified formulation 2 completed Archana [place] 03/26/2025 07:13:22 Tdap 7 completed Archana [place] 01/15/2025 10:40:34 Tdap 5 completed Archan[place] 01/15/2025 10:40:42 Pneumococcal conjugate PCV20, polysaccharide [id number] conjugate, adjuvant, PF 5 completed Archana [place] 01/23/2025 11:55:06 Tdap 2 completed Archan[place] 01/23/2025 11:55:06 Influenza, split virus, trivalent, PF 5 completed Archana [place] 01/23/2025 11:55:06 Td (adult), 2 Lf tetanus toxoid, preservative free, adsorbed 7 completed Archana [place] 01/23/2025 11:55:06 Past Encounters Encounter ID Performer Location Encounter Start Date Encounter Closed Date Diagnosis/Indication Diagnosis SNOMED-CT Code Diagnosis ICD10 Code Diagnosis Note [id number] Ena Delgado APRN [facility] Immediate Care- Floor 1, [address] [facility] [address] [place] [address] 06/29/2022 10:31:44 06/29/2022 11:50:30 [id number] Archana Lizama NP [facility] Primary Care- Floor 2, [address] [facility] [address] [place] [address] 10/04/2022 10:14:12 10/04/2022 11:26:20 Adult health examination 596577918 Z00.00 Screening for malignant neoplasm of breast 915633882 Z12.39 History of malignant neoplasm of cervix 587677086 Z85.41 Chronic hepatitis 771850 07 K73.9 Mild inter mittent asthma 905500666 J45.20 Generalize d anxiety disorder 46163297 F41.1 [id number] Archana Lizama NP [facility] Primary Care- Floor 2, [address] [facility] [place] [address] 12/12/2022 14:32:24 12/12/2022 16:39:11 Harmful pattern of use of opioid 6978331 F11.10 counseled patient and friend to make sure that patient goes straight to the facility she found. Essential hypertension 60244030 I10 continue plan Hyperlipidemia 13326697 E78.5 continue plan [id number] Saniya Castillo MD [facility] Primary Care- Floor 2, [address] [facility] [place] [address] 01/16/2023 10:33:34 01/16/2023 15:06:13 Harmful pattern of use of multiple substances 584797295 F19.10 Patient continues to get benzos and fentanyl off the street. Has been following with [facility] programs and has appointmen t with psychiatry tomorrow with hopes she will be admitted for detox. She seems resolute in her desire to complete detox this time and to stay engaged in their outpatient [facility] clinic addiction treatment programs. Encouraged her in this and reassured her that this clinic also is here to support her. She has already been prescribed narcan as precaution . Chronic hepatitis C 1283 09939 B18.2 Hep C viral load positive on 09/2022. Patient to pursue anti-viral treatment with . [id number] Live Lange DO [facility] Family Medicine- Dept [address] [facility] [place] [address] 08/13/2024 14:36:27 08/13/2024 16:13:25 Chronic obstructive pulmonary disease 41847739 J44.9 Myocardial infarction 22 129787 I21.9 Patient needs cardiac clearance for the (R) TKA kneePatien t states she sees a Dr. Yu cardiologi st in [facility]. Methadone dependence 231 276371 F11.20 patient seen at [facility] methadone clinic Anemia 202948821 D64.9 History of iron deficiency Fatigue 48221372 R53.83 Hyperlipidemia 15252707 E78.5 Tobacco de pendence syndrome 53161197 F17.200 Discussed the importance of not smoking for 5 minutes. Discussed different modalities such as nicotine patches , gum , and other medication s . Pt declines current therapies at present. [id number] Hang Yu MD [facility] Heart Care [facility] [address] [place] [address] 08/20/2024 13:39:54 08/20/2024 14:19:58 Preoperative cardiovascular examination 322060871 Z01.810 The patient has reasonable functional capacity. She is mildly bradycardi c today but asymptomat ic. Should be at low- moderate risk for cardiovasc ular complicati ons.Of note her blood pressure is very high she stopped all her medication s on her own I have requested that she restart blood pressure medication s. Essential hypertension 01889634 I10 blood pressure is high. Restart home medication s. Keep log and follow up with PCP or with usLow-salt diet < 2 gm Na/day,Reg ular exerciseWe ight loss Hyperlipidemia 99379651 E78.5 patient was previously on statin she stopped her own again needs to restart medication s. Sinus bradycardia 427290 05 R00.1 asymptomat ic, would clinically monitor for now. No immediate interventi on warranted. [id number] Live Lange DO [facility] Family [facility]- Dept [address] [place] [address] 08/28/2024 10:53:50 08/28/2024 12:38:06 Anxiety 05862932 F41.9 stable Chronic hepatitis 790085 07 K73.9 AST/ALT slightly bumpedf/u with Case in [place] discussed the importance of getting treatmentA voiding NSAIDS if at all possible Essential hypertension 59141023 I10 Hyperlipidemia 69317414 E78.5 diet and exerciseel evated chol panelreche ck in 6 months Pain of ri ght knee joint 5880415546 12311 M25.561 patient is low risk or for total right knee replacemen t Substance abuse 49532906 F19.10 continue with methadone treatment [id number] MEHDI [place] [address] [place] [address] [place] [address] 01/22/2025 08:49:58 01/22/2025 10:25:11 Screening mammography 86949863 Z12.31 Cancer cer vix screening status 124373043 Z12.4 History of hepatitis C 6725620327 9101 Z86.19 History of asthma 506997 007 Z87.09 General ex amination of patient 202123731 Z00.00 Daytime somnolence 10515 48073 00 R40.0 Vitamin D below reference range 638265176 R79.89 Hypertensive disorder 38 203319 I10 [id number] MEHDI [place] [address] [place] [address] [place] [address] 03/11/2025 09:40:29 03/11/2025 10:26:29 Dyspnea on exertion 68440357 R06.09 Hypertensive disorder 38 444117 I10 Amnesia 62274900 R41.3 Depressive disorder 3548 9007 F32.A Intermittent pain 263092 004 R52 [id number] Chris Rodríguez PA-C [facility] [address] [place] [address] 02/12/2025 09:37:18 02/12/2025 10:41:05 History of colonoscopy 1709624549 09 Z98.890 -Repeat screening colonoscop y will be due 02/2029 Chronic he patitis C caused by Hepatitis C virus genotype 1a 531688099 B18.2 -She has evidence of chronic infection >2 years-VL 1.26 million on 01/22/25-Sh e has been sober from opioid abuse [...] for hepatitis- C. History of hepatitis A 873654456 Z86.19 2018 Hepatitis B core antibody detected 863776159 R76.8 -noted in 2019. Obtain hepatitis B serologies today to ensure no co-infecti on. [id number] Damion Viera MD [facility] [place] [place] [address] 03/11/2025 10:42:52 03/11/2025 11:38:59 Obstructive sleep apnea syndrome 29657537 G47.33 autopap 6-16 Harmful pa ttern of substance use 6704602344 F19.10 Splitting nasal scarring or stricture contributi ng to some of her LEBRON symptoms. Her BMI neck circumfere nce are not classic for traditiona l LEBRON. Consider additional Flonase. Health Concerns Section Related Observation LastModified by Organization Detai ls LastModified Time None Recorded Concern Status LastModified by Organization Details LastModified Time None Recorded Advance Directives Directive N: Payers Insurance Date Sequence Insurance Name Policy Number Policy Marshall Covered Member ID Marshall Member ID Guarantor Name 08/13/2024 1 [employer] [place] Joanna Willoughby [id number] Joanna Willoughby 08/20/2024 2 [employer] [place] Joanna Willoughby [id number] Joanna Willoughby 03/25/2025 2 [place] FFS/TRADITI ONAL Joanna Willoughby [id number] Joanna Willoughby 03/25/2025 [place] - [facility] (MEDICARE) Joanna Willoughby [id number] Joanna Willoughby 03/25/2025 1 [place] Joanna Willoughby [id number] Joanna Willoughby Notes Date Note Type Note Provider Name and Address Organization Details Recorded Time 08/28/2024 text/html Joanna is a very pleasant 59-year-old white female who comes in today for her annual exam to to review some recent labsHCM Female Cancer screening Colonoscopy: 2018 Mammogram: ordered today Pap: per OBGYN Lung cancer: not indicated Laboratory Lipids: 2023 Diabetes: 2023 Immunizations Influenza: Pneumococcal: due at age 66 Tdap: Zoster: age 51 Other: DEXA: due at age 60-65 Live Lange, [address] [place] [address] Drive, [address], [place], [address], [facility] & [place] 08/28/2024 12:46:04 01/22/2025 text/html Annual WellnessReported bypatient.Diet and Nutrition:discussed diet improvement Fracture Risk:no sudden unexplained fractures Physical Activity:exercises on a regular basis Additional Lifestyle Factors:no tobacco use; no alcohol intake; uses marijuana Depression Risk:no thoughts of suicide; no history of depression; no history of mood disorders Hearing:no loss of hearing Vision:no vision problems [facility] She was most recently seen by Dr. Lange in [place] and moved back to this area, prior to that she had seen Dr. Edwards.Patient has hepatitis C, substance misuse and is enrolled in a methadone clinic for the last 1.5 years. She reports a history of CAD with an PR as well. She also has a history of vertigo.She has had right knee replacement, right shoulder replacement, 4 breast lumpectomy, csection. Her maternal grandmother and aunt had breast cancer (youngest age 40's).Her last colonoscopy was 2018, due February 2029. Patient has been experiencing some fatigue. She reports she needs a nap daily by 3 pm. She denies any pauses in sleep/ apneic periods. She reports the fatigue is worse with exertion. Umu Rascon PA-C [address] [facility], [place], [address], [facility] & [place] 01/22/2025 10:29:38 02/12/2025 text/html Ms. Willoughby is a very pleasant 60-year-old female who was referred by Umu Rascon PA-C for treatment evaluation for chronic hepatitis C. She was seen in our clinic back in 2019 following a hospitalization for acute hepatitis A infection and mononucleosis. Labs at that time were also consistent with active hepatitis C infection as well as evidence of cleared prior hepatitis B infection. She had recent labs obtained by her PCP last month that showed a detectable HCV viral load at 1.26 million, genotype 1a infection. Hepatic function labs showed a mildly elevated ALP with normal AST and ALT. CBC was unremarkable. She has remained treatment naive. She states that she has been sober from further illicit drug use for the past 1.5 years. She is participating in a maintenance drug rehab program. Currently, she is feeling well. Chris Rodríguez PA-C [address], [place], [address], [facility] & [place] 02/12/2025 11:00:13 03/11/2025 text/html Patient reports blood pressure has been running 120's at home. Denies dizziness with lisinopril. Denies dry cough. She has seen GI for her hepatitis C. She reports dyspnea on exertion as well as fatigue with exertion. She reports that she has felt more emotional lately. She has tried medication for depression in the past. Umu Rascon PA-C [address], [place], [address], [facility] & [place] 03/12/2025 11:30:55 03/11/2025 text/html She is here [...] history of nasal polyps. Damion Viera MD [address], [place], [address], [facility] & [place] 03/11/2025 11:47:38 OBGyn Episode No OBEpisode recorded.
--- OUTSIDE RECORDS SUMMARY | 2025-04-02 10:58 | XMS_ITS | Continuity of Care Document ---
Author Organization [place] - [place] [facility] [address] Address [address] [place] [address] Care Team Providers Care Coordinator Skill Training Program Name Role Phone UMU RASCON Primary Care Provider PRESLEY MUSTAFA Primary Care Provider Assessment No assessment recorded. Plan of Treatment Reminders Order Date Submit Date Provider Last Modified By Organization Details Last Modified Time Details Appointments Establish ed Visit 15 min 2024 11:00A M Chris Rodríguez PA-C Not available Not available Not available OV EST 20 2024 10:50A M Umu Rascon PA-C Not available Not available Not available Lab None recorded. Referral None recorded. Procedures None recorded. Surgeries None recorded. Imaging None recorded. Medication Orders None recorded. Patient TargetsNo targets recorded. Patient InstructionsNo instructions recorded. Reason for Referral None Reported. Results Created Date Observation Date Name Description Value Unit Range Abnormal Flag Note LastModifiedBy Organization Detail LastModifiedTime 02/13/2002/12/2025 chelo scrn mammo w/CAD bilat [facility] ity Hospit al [address] [place] [address] Phone: Fax: Name: REHANA PELAEZ Exam Date: 025 : 966 Age 60 years Gender : F Access ion: [id number] Physic geeta: RASHEEDA WILLARD Facili ty: [facility] Facili ty HSV: Outpat ient [...] Curtis Cutler 025 Thank you for referr ISRAEL RojasA to [facility] it Hospit al. Legall y authen ticate d by FAHADPRINCESS CONTI 02-12 15:16: 38 CC'ed Logic: Orderi ng Provid er: PINO VANESSA Y CC Provid er: PINO VANESSA Y Attend ing Provid er: PINO VANESSA Y Referr ing Provid er: PINO VANESSA Y Admitt ing Provid er: PINO VANESSA Y [email or web address] [facility] [address], [place], [address], 02/18/2025 14:12:43 02/29/20 25 02/27/2025 [place], liver [facility] Hospit al [address] [place] [address] Phone: Fax: Name: REHANA PELAEZ Exam Date: 02/28/20 : 966 Age 60 years Gender : F Access ion: [id number] Physic geeta: CHRIS RODRÍGUEZ [facility]ili ty: [facility] Facili ty HSV: Outpat ient Exam: [...] Filipe Stanley 02/29/20 [facility] you [facility] Leg[facility] y authen ticate d by SURINDER DEE 2024-0 02-28 14:53: 13 CC'ed Logic: Orderi ng Provid er: KATY PECK Attend ing Provid er: KATY PECK Admitt ing Provid er: KATY PECK [facility] - [facility] Therapy [address], [place], [address], 02/28/2025 14:57:14 03/05/20 25 02/26/2025 home sleep study No observ ation record ed. [email or web address] Not Available 03/06 09:54:07 03/12/20 25 02/12/2025 compl ete PFT w/ post [facility] hodil ator rama metry * No observ ation record ed. [facility] [address] [place], [address], 03/12/2025 15:15:59 Result Notes None recorded. Problems Name Problem SNOMED Code Status Onset Date Resolution Date Notes Provider Name and Address Organization Details Recorded Time Sinus bradycardi a 90860890 Active 2023 Hang Yu MD [address], [place], [address], [facility] - [facility] & [place] 4 16:11:58 Chronic hepatitis C caused by Hepatitis C virus genotype 1a 013230116 Active 2024 Chris Rodríguez PA-C [address], [place], [address], [facility] - [facility] & [place] 5 10:25:29 Hepatitis B core antibody detected 514263369 Active 2024 Chris Rodríguez PA-C [address] , [place], [address], [place] [facility] [place] & [place] 5 10:49:43 Breasts asymmetric al 454499978 Active 2022 Joanie Ordaz null, [place] [facility] [place] & [place] 3 10:22:55 Family history of malignant neoplasm of ovary 046708356 Active 2022 Joanie Ordaz null[place] [facility] [place] & [place] 3 10:23:06 Family history of breast cancer 622752887 Active 2022 Joanie Ordaz [place] [facility] [place] & [place] 3 10:23:12 Acute type A viral hepatitis 75430518 Active 2022 Joanie Ordaz [place] [facility] [place] & [place] 3 10:23:31 Viral hepatitis C 11694027 Active 2022 Joanie Ordaz [place] [facility] [place] & [place] 3 10:23:37 Posttrauma tic stress disorder 64067608 Active 2022 Joanie Ordaz [place] [facility] [place] & [place] 3 10:23:44 Vertigo 255882180 Active 2022 Joanie Ordaz [place] [facility] [place] & [place] 3 10:23:51 MRI of head abnormal 603443242602 107 Active 2022 Joanie Ordaz [place] [facility] [place] & [place] 3 10:24:01 Cerebrovas cular disease 72108675 Active 2022 Joanie Ordaz [place] [facility] [place] & [place] 3 10:24:16 Vitamin D deficiency 18715133 Active 2022 Joanie Ordaz [place] [facility] [place] & [place] 3 10:24:34 Essential hypertensi on 96290341 Active 2022 Joanie Ordaz [place] [facility] & [place] 3 10:24:39 Osteoarthr itis 250102385 Active 2022 Joanie Ordaz [place] [facility] & [place] 3 10:24:47 Harmful pattern of use of cocaine 45035701 Active 2022 Joanie Orlin [place] [facility] [place] & [place] 3 10:25:00 Anxiety 45125128 Active 2022 Joanie Ordaz [place] [facility] [place] & [place] 3 10:25:08 Panic attack 550844120 Active 2022 Joanie Orlin null[place] [facility] & [place] 3 10:25:14 Hyperlipid emia 51091634 Active 2022 Joanie Orlin null[place] [facility] [place] & [place] 3 10:25:21 Chronic hepatitis 63398765 Active 2022 Archana Lizama NP [address] [place] [address], [address], [place], [address], [place] - [facility] & [place] 3 11:17:17 Problem Notes None recorded. Procedures Surgical History Date Name Laterality Status Provider Name and Address Organization Details Recorded Time 02/13/20 25 Most Recent Mammogram completed Archana Bradley [place] - [facility] - [facility] & [place] 02/26/2025 09:42:52 10/26/19 25 Knee Surgery completed Sol Key [place] - [facility] - [facility] & [place] 01/22/2025 09:13:46 09/25/19 22 Joint Replacement completed Britt HUTCHINS - [facility] - [facility] & [place] 01/02/2023 09:40:19 02/26/20 19 Date of Last Colonoscopy completed Solis HUTCHINS - [facility] - [facility] & [place] 05/24/2023 16:44:37 02/26/20 19 Colonoscopy completed Solis HUTCHINS - [facility] - [facility] & [place] 08/05/2024 10:24:53 01/30/20 19 Date of Last Pap Smear completed Britt HUTCHINS - [facility] & [place] 01/02/2023 09:40:06 12/18/19 19 completed Britt HUTCHINS - [facility] & [place] 01/02/2023 09:40:06 09/25/19 19 biopsy of breast completed Archana Kirk [place] - [facility] & [place] 02/26/2025 09:44:02 09/25/19 15 Breast Surgery completed Britt HUTCHINS - [facility] & [place] 01/02/2023 09:40:19 09/25/19 01 Other completed Britt HUTCHINS - [facility] & [place] 01/02/2023 09:40:19 loop electrosurgical excision procedure of cervix completed Yee HUTCHINS - [facility] & [place] 01/30/2023 15:18:49 lumpectomy of breast completed Solis Osuna [facility] & [place] 05/24/2023 16:39:16 Carpal tunnel surgery completed Yee HUTCHINS - [facility] & [place] 01/30/2023 15:19:45 delivery completed Yee Loredo - [facility] & [place] 01/30/2023 15:20:01 total shoulder replacement completed Chiquis Snow [place] - [facility] & [place] 08/20/2024 13:47:59 Imaging Results None recorded. Procedure [...] completed Not Available Not Available Not Available [facility] COVID-19 Antigen Rapid Home Test kit 01/16 completed Not Available Not Available Not Available Vitals Date Recorded Body height Body mass index (BMI) Body weight Body temperature Oxygen saturation Oxygen saturation in Arterial blood by Pulse oximetry Heart rate Systolic And Diastolic Provider Name and Address Organization Details Last Updated DateTime 5 158.75 cm 22.7 kg/m2 41930.6 4 g 97.1 [degF] 97 % 97 % 70 /min 120/62 mm[Hg] Ashley Silvestre [facility] & [place] 5 11:26:15 Date Recorded Body height Body mass index (BMI) Body weight Body temperature Heart rate Systolic And Diastolic Provider Name and Address Organization Details Last Updated DateTime 5 158.75 cm 22.7 kg/m2 18342.7 4 g 97.9 [degF] 61 /min 127/76 mm[Hg] Sol Key [facility] & [place] 5 10:23:54 Social History Question Answer Notes LastModified by Organizat ion Details LastModified Time Tobacco Smoking Status Never Smoker Britt duran [facility], [facility] & [place] 01/02/2023 09:40:15 Do You Have An Advance Directive? No [email or web address] Information not available 01/02/2023 Are You Blind Or Do You Have Difficulty Seeing? No [email or web address] Information not available 01/23/2025 Is Blood Transfusion Acceptable In An Emergency? Yes Information not available 01/22/2025 What Is Your Level Of Caffeine Consumption? Heavy [email or web address] Information not available 08/20/2024 In The 14 [...] Or Recreational Drugs Have You Used? Thc [email or web address] Information not available 08/20/2024 Have You Processed [...] 01/22/2025 When Did You Quit Smoking? 6-10yearssincel chuy [email or web address] Information not available 01/02/2023 Are There Any [...] Do You Have A Medical Power Of Tree Farmer? No Information not available 01/22/2025 What Was [...] Are You Passively Exposed To Smoke? No [email or web address] Information no t available 01/02/2023 How Much Tobacco Do You Smoke? No [email or web address] Information not available 01/02/2023 Do You Use Sunscreen Routinely? Yes Information not available 01/22/2025 Has Tobacco Cessation Counseling Been Provided? Yes [email or web address] Information not available 01/02/2023 How Many Years Have You Smoked Tobacco? 0 [email or web address] Information not available 01/02/2023 Have You Used IV Drugs? Yes 2015 [email or web address] Information not available 08/20/2024 Do You Have Difficulty Walking Or Climbing Stairs? No Information not available 01/22/2025 Are You Currently In School? No Information not available 01/22/2025 Sex: Unknown Functional Status Question Answer Note LastModified by Organizat ion Details LastModified Time Do you use any illicit or recreational drugs? No [email or web address] Information not available 01/23/2025 Do you or have you ever used any other forms of tobacco or nicotine? No [email or web address] Information not available 01/02/2023 What is your level of alcohol consumption? None chapis Information not available 06/29/2022 Do you or have you ever used smokeless tobacco? [id number] [email or web address] Information not available 01/02/2023 Are you currently [...] 01/22/2025 What is your exercise level? None [email or web address] Information not available 01/23/2025 Mental Status Question Answer Note LastModified by Organizat ion Details LastModified Time Do you feel stressed (tense, restless, nervous, or anxious, or unable to sleep at night)? [id number] [email or web address] Information not available 01/02/2023 Do you have [...] 12/05/2022 12:57:42 Father Malignant neoplastic disease Skin-M mylenem a [email or web address] Not available 01/22/2025 08:51:28 Brother [...] Condition Response Depression Y Lung Disease Y Heart Attack (AL) Y Anxiety Disorder Y Autoimmune disease Y Arthritis Y Substance Abuse Y High Cholesterol Y Hepatitis Y Liver Disease Y Rheumatoid Arthritis Y Hypertension Y Gynecological [...] Archana [place] null, [place] [facility] [place] & [place] 03/26/2025 07:13:22 SARS-COV-2 (COVID-19) vaccine, UNSPECIFIED 2 completed Archana [place] [facility] [place] 03/26/2025 07:13:22 SARS-COV-2 (COVID-19) vaccine, UNSPECIFIED 1 completed Archan[place] [facility] [place] 03/26/2025 07:13:22 SARS-COV-2 (COVID-19) vaccine, UNSPECIFIED 1 completed Archan[place] [facility] [place] [facility] & [place] 03/26/2025 07:13:22 Hep A, unspecified formulation 0 completed Archana [place] [facility] [place] 03/26/2025 07:13:22 Hep A, unspecified formulation 9 completed Archan[place] [facility] [place] 03/26/2025 07:13:22 influenza, unspecified formulation 2 completed Archana [place] [facility] [place] & [place] 03/26/2025 07:13:22 influenza, unspecified formulation 9 completed Archan[place] [facility] [place] 03/26/2025 07:13:22 influenza, unspecified formulation 8 completed Archana [place] [facility] [place] 03/26/2025 07:13:22 influenza, unspecified formulation 0 completed Archan[place] [facility] [place] 03/26/2025 07:13:22 influenza, unspecified formulation 2 completed Archan[place] [facility] [place] 03/26/2025 07:13:22 Tdap 7 completed Archana [place] [facility] [place] [facility] & [place] 01/15/2025 10:40:34 Tdap 5 completed Archana [place] null[place] [facility] [place] [facility] & [place] 01/15/2025 10:40:42 Pneumococcal conjugate PCV20, polysaccharide [id number] conjugate, adjuvant, PF 5 completed Archana [place] [facility] [place] 01/23/2025 11:55:06 Tdap 2 completed Archana Bradley null, [facility] [place] 01/23/2025 11:55:06 Influenza, split virus, trivalent, PF 5 completed Archana hill, [facility] [place] 01/23/2025 11:55:06 Td (adult), 2 Lf tetanus toxoid, preservative free, adsorbed 7 completed Archana hill, [facility] [place] 01/23/2025 11:55:06 Past Encounters Encounter ID Performer Location Encounter Start Date Encounter Closed Date Diagnosis/Indication Diagnosis SNOMED-CT Code Diagnosis ICD10 Code Diagnosis Note [id number] Umu Rascon PA-C [facility] [address] [place] [address] 03/11/2025 09:40:29 03/11/2025 10:26:29 Dyspnea on exertion 79789990 R06.09 Hypertensive disorder 38 406090 I10 Amnesia 27026911 R41.3 Depressive disorder 3548 9007 F32.A Intermittent pain 882105 004 R52 [id number] Chris Rodríguez PA-C [facility] [address] [place] [address] 02/12/2025 09:37:18 02/12/2025 10:41:05 History of colonoscopy 6709664947 09 Z98.890 -Repeat screening colonoscop y will be due 02/2029 Chronic he patitis C caused by Hepatitis C virus genotype 1a 327023213 B18.2 -She has evidence of chronic infection [...] for hepatitis- C. History of hepatitis A 861733542 Z86.19 2019 Hepatitis B core antibody detected 254114337 R76.8 -noted in 2019. Obtain hepatitis B serologies today to ensure no co-infecti on. [id number] Damion Viera MD [facility] [address] [place] [address] 03/11/2025 10:42:52 03/11/2025 11:38:59 Obstructive sleep apnea syndrome 78545952 G47.33 autopap 6-16 Harmful pa ttern of substance use 5847982182 F19.10 Splitting nasal scarring or stricture contributi [...] Marshall Member ID Guarantor Name 03/11/2025 1 [place] Rehana Willoughby [id number] Rehana Willoughby 03/11/2025 2 MEDICAID-[facility] CHOICES - FFS/TRADITIO NAL Rehana Willoughby [id number] Rehana Willoughby Notes Date Note Type Note [...] tried medication for depression in the past. MAGO Swain-Irena [address], [place], [address], [facility] & [place] 03/12/2025 11:30:55 03/11/2025 text/html She is here [...] of nasal polyps. Damion Viera MD [address], [place], [address], [facility] - [place] 03/11/2025 11:47:38 OBGyn Episode No OBEpisode recorded.
--- OUTSIDE RECORDS SUMMARY | 2025-04-02 10:58 | XMS_ITS | Continuity of Care Document ---
Author Organization [place] - NT [facility] [place], [facility] Address [address] [facility] [address] [place] [address] Care Team Providers Care Lockstitch Waistline Joiner Name Role Phone UMU RASCON Primary Care Provider PRESLEY MUSTAFA Primary Care Provider [phone] Assessment Encounter Date Assessment Date Assessment LastModified by Organization Details LastModified Time 02/12/2025 02/12/2025 60-year-old female with treatment naive chronic hepatitis C, genotype 1a infection presents for treatment evaluation. She has a history of acute hepatitis A infection in 2019 and evidence of cleared prior HBV infection noted at that time. Not available 02/12/2025 10:50:39 Plan of Treatment Reminders Order Date Submit Date Provider Last Modified By Organization Details Last Modified Time Details Appointments Establish ed Visit 15 min 2024 11:00A M Chris Rodríguez PA-C Not available Not available Not available OV EST 20 2024 10:50A M Umu Rascon PA-C Not available Not available Not available Lab hepatic function panel, serum 2024 025 [facility] (Registration ), [address] , [place], [address], 03/05/2025 08:22:14 hepatitis C liver status biomarker panel, serum 2024 025 [facility] (Registration ), [address] , [place], [address], 02/15/2025 06:11:09 PT/INR 2024 [facility] (Registration ), [address] [place], [address], 03/05/2025 08:22:15 HIV (1+2) Ab screen, serum 2024 [facility] (Registration ), [address] [place], [address], 03/05/2025 08:22:15 hepatitis B core Ab, total, serum 2024 [facility] (Registration ), [address] [place], [address], 02/13/2025 07:11:00 HBsAg (hepatiti s B surface Ag), serum [address] [place] [address] (Registration ), [address] [place], [address], 03/05/2025 08:22:15 hepatitis B DNA, quant, PCR, serum [address] [place] [address] (Registration ), [address] [place], [address], 03/05/2025 08:22:15 hepatitis B surface Ab, quantitat kristie, serum [address] [place] [address] (Registration ), [address] [place], [address], 03/05/2025 08:22:15 Referral None recorded. Procedures None recorded. Surgeries None recorded. Imaging US, liver 2024 [facility] [place] [facility], [address] [place], [address], 02/28/2025 14:57:14 Medication Orders None recorded. Patient TargetsNo targets recorded. Patient InstructionsNo instructions recorded. Reason for Referral None Reported. Results Created Date Observation Date Name Description Value Unit Range Abnormal Flag Note LastModifiedBy Organization Detail LastModifiedTime 01/23/20 25 07/15/[address] refer ral No observ ation record ed. [facility] [address] [facility] [place], [address], 03/31/2025 13:26:45 02/13/20 25 02/12/2025 chelo scrn mammo w/CAD bilat [facility] [address] [place] [address] Phone: Fax: Name: REHANA PELAEZ Exam Date: 025 : 966 Age 60 years Gender : F Access ion: [id number] Physic geeta: RASHEEDA WILLARD Facili ty: PSYCHIATRIC Facili ty HSV: Outpat ient Exam: CHELO [...] Cutler 025 Thank you for referr ing KRYSTINA APARICIO REHANA to [facility]. Legall y authen ticate d by FAHAD CONTI 2024-0 02-12 15:16: 38 CC'ed Logic: Orderi ng Provid er: PINO Loredo CC Provid er: PINO Loredo Attend ing Provid er: PINO Loredo Referr ing Provid er: PINO Loredo Admitt ing Provid er: PINO Loredo [address] [place] [address] - Physical Therapy [address] [place] [address], [place], [address], 02/18/2025 14:12:43 02/29/20 25 02/27/2025 , [facility] [address] [place] [address] Phone: Fax: Name: REHANA PELAEZ Exam Date: 02/28/20 : 966 Age 60 years Gender : F Access ion: [id number] Physic geeta: CHRIS RODRÍGUEZ Facili ty: [facility] Facili ty HSV: Outpat ient Exam: LIVER ULTRAS OUND Ultras ound liver the right upper quadra nt HISTOR Y: Hepati tis C COMPAR DENISE: 12/25/19 TECHNI QUE: B-mode color Dopple r [...] Thank you for referr REHANA Rojas to [facility] al. Legall y authen ticate d by SURINDER DEE 2024-0 02-28 14:53: 13 CC'ed Logic: Orderi ng Provid er: KATY PECK Attend ing Provid er: KATY PECK Admitt ing Provid er: KATY PECK [facility] - Physical Therapy [address] [facility] [facility], [place], [address], 02/28/2025 14:57:14 03/05/20 25 02/26/2025 home sleep study No observ ation record ed. [email or web address] Not Available 03/06 09:54:07 06/1802/12/2025 compl ete PFT w/ post [facility] hodil ator rama metry * No observ ation record ed. [facility] [address] [place], [address], 03/12/2025 15:15:59 Result Notes None recorded. Problems Name Problem SNOMED Code Status Onset Date Resolution Date Notes Provider Name and Address Organization Details Recorded Time Sinus bradycardi a 71577526 Active 2023 Hang Yu MD [address], [place], [address], [place] - [facility] - [place] & [place] 4 16:11:58 Chronic hepatitis C caused by Hepatitis C virus genotype 1a 834128592 Active 2024 Chris Rodríguez PA-C [address] [facility], [place], [address], [place] [facility] [place] 5 10:25:29 Hepatitis B core antibody detected 719843800 Active 2024 Chris Rodríguez PA-C [address] [facility], [place], [address], [place] [facility] [place] 5 10:49:43 Breasts asymmetric al 797922784 Active 2022 Joanie [place], [place] - [facility] [place] & [place] 3 10:22:55 Family history of malignant neoplasm of ovary 985229296 Active 2022 Joanie Ordaz null[place] [facility] [place] & [place] 3 10:23:06 Family history of breast cancer 291171084 Active 2022 Joanie Ordaz [place] [facility] [place] & [place] 3 10:23:12 Acute type A viral hepatitis 13048127 Active 2022 Joanie Ordaz [place] [place] 3 10:23:31 Viral hepatitis C 89792494 Active 2022 Joanie Ordaz [place] [place] & [place] 3 10:23:37 Posttrauma tic stress disorder 42095402 Active 2022 Joaniesunil Ordaz null, [place] [facility] [place] & [place] 3 10:23:44 Vertigo 804828755 Active 2022 Joaniesunil Ordaz null[place] [facility] - & [place] 3 10:23:51 MRI of head abnormal 713683844138 107 Active 2022 Joaniesunil Ordaz null[place] [facility] [place] & [place] 3 10:24:01 Cerebrovas cular disease 00850014 Active 2022 Joanie Ordaz [place] [facility] [place] & [place] 3 10:24:16 Vitamin D deficiency 76948943 Active 2022 Joaniesunil hill, [place] - [facility] - & [place] 3 10:24:34 Essential hypertensi on 92847641 Active 2022 Joaniesunil [place], [place] - [facility] - & [place] 3 10:24:39 Osteoarthr itis 932156481 Active 2022 Joaniesunil [place], [place] - [facility] - & [place] 3 10:24:47 Harmful pattern of use of cocaine 14958497 Active 2022 Joanie Ordaz [place] [facility] [place] & [place] 3 10:25:00 Anxiety 03443022 Active 2022 Joanie Ordaz [place] [facility] - & [place] 3 10:25:08 Panic attack 243182286 Active 2022 Joanie Ordaz [place] [facility] - & [place] 3 10:25:14 Hyperlipid emia 66587678 Active 2022 Joanie Ordaz [place] [facility] - & [place] 3 10:25:21 Chronic hepatitis 26265382 Active 2022 Archana Lizama NP [address] [place] [address], [address], [place], [address], [place] - [facility] - [facility] & [place] 11:17:17 Problem Notes None recorded. Procedures Surgical History Date Name Laterality Status Provider Name and Address Organization Details Recorded Time 02/13/20 25 Most Recent Mammogram completed Archana HUTCHINS - [facility] - [facility] & [place] 02/26/2025 09:42:52 10/26/19 25 Knee Surgery completed Sol HUTCHINS - [facility] - [place] & [place] 01/22/2025 09:13:46 09/25/19 22 Joint Replacement completed Britt HUTCHINS - [facility] - [facility] & [place] 01/02/2023 09:40:19 02/26/20 19 Date of Last Colonoscopy completed Solis HUTCHINS - [facility] - [place] & [place] 05/24/2023 16:44:37 02/26/20 19 Colonoscopy completed Solis HUTCHINS - [facility] - [place] & [place] 08/05/2024 10:24:53 01/30/20 19 Date of Last Pap Smear completed Britt HUTCHINS - [facility] - [place] & [place] 01/02/2023 09:40:06 12/18/19 19 completed Britt HUTCHINS - [facility] - [facility] & [place] 01/02/2023 09:40:06 09/25/19 19 biopsy of breast completed Archana HUTCHINS - [facility] - [facility] & [place] 02/26/2025 09:44:02 09/25/19 15 Breast Surgery completed Britt HUTCHINS - [facility] - [facility] & [place] 01/02/2023 09:40:19 09/25/19 01 Other completed Britt HUTCHINS - [facility] - [facility] & [place] 01/02/2023 09:40:19 loop electrosurgical excision procedure of cervix completed Yee HUTCHINS - [facility] - [place] & [place] 01/30/2023 15:18:49 lumpectomy of breast completed Solis HUTCHINS - [facility] - [facility] & [place] 05/24/2023 16:39:16 Carpal tunnel surgery completed Yee HUTCHINS - [facility] [place] 01/30/2023 15:19:45 delivery completed Yee Marshall Y - [facility] & [place] 01/30/2023 15:20:01 total shoulder replacement completed Chiquis Snow [place] - [facility] [place] 08/20/2024 13:47:59 Imaging Results None recorded. Procedure [...] completed Not Available Not Available Not Available [employer] COVID-19 Antigen Rapid Home Test kit 01/16 completed Not Available Not Available Not Available Vitals Date Recorded Body height Body mass index (BMI) Body weight Body temperature Oxygen saturation Oxygen saturation in Arterial blood by Pulse oximetry Heart rate Provider Name and Address Organization Details Last Updated DateTime 5 158.75 cm 22.8 kg/m2 03796.7 9 g 97.2 [degF] 99 % 99 % 50 /min [facility] [place] 10:05:48 Social History Question Answer Notes LastModified by Organizat ion Details LastModified Time Tobacco Smoking Status Never Smoker Britt duran [facility] [place] 01/02/2023 09:40:15 Do You Have An Advance Directive? No [email or web address] Information not available 01/02/2023 Are You Blind Or Do You Have Difficulty Seeing? No [email or web address] Information not available 01/23/2025 Is Blood Transfusion Acceptable In An Emergency? Yes Information not available 01/22/2025 What Is Your Level Of Caffeine Consumption? Heavy [email or web address] Information not available 08/20/2024 In The 14 [...] Or Recreational Drugs Have You Used? Thc [email or web address] Information not available 08/20/2024 Have You Processed [...] When Did You Quit Smoking? 6-10yearssincel chuy [email or web address] Information not available 01/02/2023 Are There Any [...] Do You Have A Medical Power Of Cookie Padder? No Information not available 01/22/2025 What Was The Date Of Your Most Recent Tobacco Screening? 12/05/2022 [email or web address] Information not available 01/02/2023 How Many Children [...] Are You Passively Exposed To Smoke? No [email or web address] Information no t available 01/02/2023 How Much Tobacco Do You Smoke? No [email or web address] Information not available 01/02/2023 Do You Use Sunscreen Routinely? Yes Information not available 01/22/2025 Has Tobacco Cessation Counseling Been Provided? Yes [email or web address] Information not available 01/02/2023 How Many Years Have You Smoked Tobacco? 0 [email or web address] Information not available 01/02/2023 Have You Used IV Drugs? Yes 2015 [email or web address] Information not available 08/20/2024 Do You Have Difficulty Walking Or Climbing Stairs? No Information not available 01/22/2025 Are You Currently In School? No Information not available 01/22/2025 Sex: Unknown Functional Status Question Answer Note LastModified by Organizat ion Details LastModified Time Do you use any illicit or recreational drugs? No [email or web address] Information not available 01/23/2025 Do you or have you ever used any other forms of tobacco or nicotine? No [email or web address] Information not available 01/02/2023 What is your level of alcohol consumption? None [email or web address] Information not available 06/29/2022 Do you or have you ever used smokeless tobacco? [id number] [email or web address] Information not available 01/02/2023 Are you currently [...] 01/22/2025 What is your exercise level? None Information not available 01/23/2025 Mental Status Question Answer Note LastModified by Organizat ion Details LastModified Time Do you feel stressed (tense, restless, nervous, or anxious, or unable to sleep at night)? [id number] [email or web address] Information not available 01/02/2023 Do you have [...] Hepatitis Y Liver Disease Y Heart Attack (MS) Y Rheumatoid Arthritis Y Hypertension Y Gynecological [...] [place], [place] [facility] [place] 03/26/2025 07:13:22 SARS-COV-2 (COVID-19) vaccine, UNSPECIFIED 2 completed Archana Bradley [place] 03/26/2025 07:13:22 SARS-COV-2 (COVID-19) vaccine, UNSPECIFIED 1 completed Archana [place] 03/26/2025 07:13:22 SARS-COV-2 (COVID-19) vaccine, UNSPECIFIED 1 completed Archana [place] 03/26/2025 07:13:22 Hep A, unspecified formulation 0 completed Archana [place] 03/26/2025 07:13:22 Hep A, unspecified formulation 9 completed Archana [place] 03/26/2025 07:13:22 influenza, unspecified formulation 2 completed Archana [place] 03/26/2025 07:13:22 influenza, unspecified formulation 9 completed Archana [place] 03/26/2025 07:13:22 influenza, unspecified formulation 8 completed Archana [place] 03/26/2025 07:13:22 influenza, unspecified formulation 0 completed Archana [place] 03/26/2025 07:13:22 influenza, unspecified formulation 2 completed Archana [place] 03/26/2025 07:13:22 Tdap 7 completed Archana [place] 01/15/2025 10:40:34 Tdap 5 completed Archana [place] 01/15/2025 10:40:42 Pneumococcal conjugate PCV20, polysaccharide IGF188 conjugate, adjuvant, PF 5 completed Archana [place] 01/23/2025 11:55:06 Tdap 2 completed Archana [place] 01/23/2025 11:55:06 Influenza, split virus, trivalent, PF 5 completed Archana [place] 01/23/2025 11:55:06 Td (adult), 2 Lf tetanus toxoid, preservative free, adsorbed 7 completed Archana Bradley null, [place] - [facility] - [place] & [place] 01/23/2025 11:55:06 Past Encounters Encounter ID Performer Location Encounter Start Date Encounter Closed Date Diagnosis/Indication Diagnosis SNOMED-CT Code Diagnosis ICD10 Code Diagnosis Note [id number] Umu Rascon PA-C [facility] [address] [place] [address] 01/22/2025 08:49:58 01/22/2025 10:25:11 Screening mammography 10341625 Z12.31 Cancer cer vix screening status 225240203 Z12.4 History of hepatitis C 5774458464 9101 Z86.19 History of asthma 043599 007 Z87.09 General ex amination of patient 196411450 Z00.00 Daytime somnolence 11765 53134 00 R40.0 Vitamin D below reference range 089296141 R79.89 Hypertensive disorder 38 012394 I10 [id number] Chris Rodríguez PA-C [facility] [address] [place] [address] 02/12/2025 09:37:18 02/12/2025 10:41:05 History of colonoscopy 1919563882 09 Z98.890 -Repeat screening colonoscop y will be due 02/2029 Chronic he patitis C caused by Hepatitis C virus genotype 1a 623574942 B18.2 -She has evidence of chronic infection >2 years-VL 1.26 million on 01/22/25-Hemant gunter 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 History of hepatitis A 071737218 Z86.19 2019 Hepatitis B core antibody detected 476494573 R76.8 -noted in 2019. Obtain hepatitis B serologies today to ensure no co-infecti on. Health Concerns Section Related Observation LastModified by Organization Detai ls LastModified Time None Recorded Concern Status LastModified by Organization Details LastModified Time None Recorded Payers Encounter Date Sequence Insurance Name Policy Number Policy Marshall Covered Member ID Marshall Member ID Guarantor Name 02/12/2025 1 [place] Rehana Colbertanan [id number] Rehana Willoughby 02/12/2025 2 [place] [place] FFS/TRADITIO NAL Rehana [place] Fartun [id number] Rehana Santiago Fartun Notes Date Note Type Note Provider Name and Address Organization Details Recorded Time 02/12/2025 text/html Ms. Willoughby is a very [...] she is feeling well. Chris Rodríguez PA-C [address], [place], [address], [facility] - [place] & [place] 02/12/2025 11:00:13 OBGyn Episode No OBEpisode recorded.
[2025-04-02 12:38] LABS: Anion Gap 15.6 mEq/L (5-15); Blood Urea Nitrogen 6 mg/dl (7-17); Calcium 9.8 mg/dl (8.4-10.2); Carbon Dioxide 25 mmol/L (22.0-30.0); Chloride 92 mmol/L (98-107); Creatinine,Serum 0.70 mg/dl (0.52-1.04); Estimated Glomerular Filt Rate 86 ml/min (>60); GFR (African American) 104 ML/MIN (>60); Glucose 91 mg/dl (74-100); Potassium 4.6 mmoL/L (3.5-5.1); Sodium 128 mmol/L (136-145)
== END 2025-04-02 23:59 | disposition home or self-care (01) ==
LOC: LAB 10:56
PROVIDERS: PCP Physician Assistant; Visit Provider Physician Assistant
DX: E87.1 Hypo-osmolality and hyponatremia (principal)
CPT/HCPCS: 36415; 80048

== ENCOUNTER 2025-04-25 12:44 | Outpatient (CLI) | payer MEDICARE, MEDICAID, SELFPAY ==
--- OUTSIDE RECORDS SUMMARY | 2025-04-25 12:48 | XMS_ITS | Clinical Summary ---
Author Organization [employer] [facility] Address [address] [place] [address] Phone Care Team Providers Care [facility] Nurs[facility] Assistant Name Role Phone Molly BUSHAndra ZHONG Primary Care Physician + Conditions or Problems Problem Name Problem Code Onset Date Status Entry Date Provider Comment Standard Description Annotate Body mass index (BMI) 29.0-29.9; adult Z68.29 (ICD-10-CM) Active 03/27 Moshe Mclaughlin DO Body mass index [BMI] 29.0-29.9, adult Fall 515119585 (SNOMED CT) Inactive 03/27 Moshe Mclaughlin DO At increased risk for falls Rib pain, right sided 416000342 (SNOMED CT) Inactive 03/27 Moshe Mclaughlin DO Rib pain Upper respiratory infection 05200254 (SNOMED CT) Inactive 10/16 Aixa Sequeira APRN Upper respiratory infection Breast cyst, left 888974604 (SNOMED CT) Active 10/16 Aixa Sequeira APRN Cyst of breast Breast Disease 49161378 (SNOMED CT) Active 10/16 Aixa Sequeira APRN Disorder of breast (History of) Medications Medication Instructions Start Date Stop Date Generic Name [facility] Provider CYCLOBENZAPRINE HCL 10 MG TABS 1 TAB Q 12 HR PRN BACK/RIB SPASM CYCLOBENZAPRINE HCL 41999160078 Moshe Mclaughlin DO IBUPROFEN 800 MG TABS TAKE 1 TABLET THREE TIMES DAILY NEEDED FOR PAIN-WITH FOOD. 04/01 IBUPROFEN 82455797942 Moshe Mclaughlin DO MUCINEX 600 MG NR83P-VQG TAKE 1 TABLET BY MOUTH 2 TIMES A DAY 10/27 GUAIFENESIN 74722686840 Aixa Fabby [employer] IBUPROFEN 800 MG TABS TAKE 1 TABLET BY MOUTH EVERY 8 HOURS NEEDED IBUPROFEN 45920760529 Aixa Peckworth [employer] AMOXICILLIN 875 MG TABS TAKE 1 TABLET BY MOUTH 2 TIMES A DAY 10/27 AMOXICILLIN 59938538570 Aixa Peckworth [employer] Medications Administered No information available. Allergies, Adverse Reactions, Alerts Observed no known allergies at Results Date Name Value Unit Range Flag Description Office Visit: URI CYST LEFT BREAST RAPID STREP negative Streptoc occus pyogenes DNA [Presence] in Throat by MOY with non-probe detection Plan of Care Type Date Detail Pending order Mammogram Diagno stic Pending Order exclud ed from report: Procedures Code Procedure Name Date Entry Date SCT-[id number] Medication Reconciliation SCT-[id number] Medication Reconciliation CPT-3074F Most recent systolic blood pressure <130 mm Hg CPT-3079F Most recent diastoli c blood pressure 80-89 mm Hg Mammo DX SHANEKA Mammogram Diagnostic SCT-[id number] Medication Reconciliation Vital Signs Date Name Value Unit Description BMI (Body Mass Index) 29.62 kg/m2 Bod y Mass Index (Ratio) Body Temperature 98.0 [degF] temperat ure E&M Body Temperature 36.67 Fauzia temperat ure in centigrade E&M BP Diastolic 83 mm[Hg] blood pressu re, diastolic BP Systolic 129 mm[Hg] blood pressur e, systolic BSA (Body Surface Area) 1.83 b jolie surface area Heart Rate 121 /min pulse rate Height 63 [in_us] height E&M Height 160.02 cm height in cent imeters E&M Weight Measured 166.6 [lb_av] weight E& M Weight Measured 166.6 [lb_av] weight E& M Weight Measured 75.73 kg weight in kilograms E&M Immunizations No information available. Advance Directives No information available.
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
--- OUTSIDE RECORDS SUMMARY | 2025-04-25 12:49 | XMS_ITS ---
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
--- OUTSIDE RECORDS SUMMARY | 2025-04-25 12:49 | XMS_ITS | Clinical Summary ---
Author Organization Healthcare Address [address] [place] [address] Care Team Providers Care Biochemistry Professor Name Role Phone Umu De Oliveira Primary Care Provider [phone] Allergies No known active allergies Medications * This document contains information received from the source organization and may not represent a complete record from that organization. aspirin 81 MG EC tablet Take 81 mg by mouth 1 (one) time each day. Active escitalopram (Lexapro) 10 MG tablet Take 1 tablet (10 mg total) by mouth 1 (one) time each day. 30 tablet 12/25/19 23 Active Additional Information Patient not taking.Reported on 01/17/2023 folic acid (Folvite) 1 MG tablet Take 1 mg by mouth 1 (one) time each day. Active mirtazapine (Remeron) 15 MG tablet Take 15 mg by mouth every night. Active ondansetron ODT (Zofran-ODT) 4 MG disintegrating tablet Take 4 mg by mouth every 8 (eight) hours if needed for nausea or vomiting. Active pravastatin (Pravachol) 40 MG tablet Take 40 mg by mouth every night. Active prazosin (Minipress) 1 MG capsule Take 1 mg by mouth every night. Active thiamine (Vitamin B-1) 100 MG tablet Take 100 mg by mouth 1 (one) time each day. Active traZODone (Desyrel) 50 MG tablet Take 50 mg by mouth at night if needed for sleep. Active lisinopril 10 MG tabletIndications: Hypertension, unspecified type Take 1 tablet (10 mg) by mouth 1 (one) time each day. 30 tablet 11 03/22/20 Active Additional Information Patient not taking.Reported on 09/10/2023 cloNIDine (Catapres) 0.1 MG tabletIndications: Opiate use Take 1 tablet (0.1 mg) by mouth 3 (three) times a day for 4 days. 12 tablet 03/22/20 Active Additional Information Patient not taking.Reported on 09/10/2023 ibuprofen 800 MG tabletIndications: Osteoarthritis, unspecified osteoarthritis type, unspecified site Take 1 tablet (800 mg) by mouth every 8 (eight) hours if needed for mild pain. 45 tablet 1 03/22/20 Active Buprenorphine ER (Sublocade) 300 MG/1.5ML solution prefilled syringe Inject 1.5 mL (300 mg) under the skin every 28 (twenty-eight) days. 1.5 mL 1 03/30/20 Active Additional Information Patient not taking.Reported on 09/10/2023 acetaminophen (Tylenol) 325 MG tablet Take 2 tablets (650 mg) by mouth every 6 (six) hours if needed. Active Active Problems Problem Noted Date Diagnosed Date Hypertension 09/10/2023 Hyperlipidemia 09/10/2023 Hepatitis C virus 09/10/2023 Opioid use disorder, severe, dependence 09/10/20 Benzodiazepine withdrawal with complication 12/25 At high risk for falls 01/10/2023 Withdrawal from benzodiazepine, with delirium Opiate use 12/24/2022 Assessment & Plan (01/10/2023 2:44 PM EDT): -Patient continues daily illicet drug use to include marijuana, fentanyl, valium, and meth. -Patient is eager to get set up with [facility] and start a journey to recovery -Patient has received multiple counceling sessions to change habits and stop drug use, but educated patient that it has to start with her and the drive she wants to change. -Education provided on baby steps , and to take old habits and who she is around. -[facility] called while in the clinic today and will set up appointment with the patient. -Narcan kit prescribed to patient -Patient states she leaves two narcan kits in her car and that she also has some at home, but is unaware if they are . -Educated patient to follow up with pcp for future care PTSD (post-traumatic stress disorder) 12/24/2022 Benzodiazepine withdrawal with perceptual distur jasonce 12/21/2022 Encounter for gynecological examination without abnormal finding 03/16/2022 Assessment & Plan (03/16/2022 5:56 PM EDT): - pap today - mammogram ordered today Screening mammogram for breast cancer 03/16/2022 Vasomotor symptoms due to menopause 03/16/2022 Assessment & Plan (03/16/2022 5:57 PM EDT): - given PROBATION COUNSELOR family history - will try to avoid HRT - discussed trying venlafaxine - she is interested. Discussed BBW of increased suicidal or homicidal ideation. - Rx sent Family history of cancer 03/16/2022 Assessment & Plan (03/16/2022 5:56 PM EDT): - strong family history of PROBATION COUNSELOR cancers - says she or no one in her family has been tested for genetic syndromes - genetics referral placed Resolved Problems Problem Noted Date Diagnosed Date Resolved Date Opiate withdrawal 09/10/2023 09/14/2023 Encounters Date Type Department Care Team Description 03/31/2025 Community [facility] Community Practice [address] [place] [phone] Umu De Oliveira, PA Cervical cancer screening (Primary Dx) from Last 3 Months Immunizations Immunization Administration Dates Next Due Hep A, Adult 04/23/2020,11/23/2018 Influenza, injectable, MDCK, preservative free, quadrivalent 06/15/2022,07/18/2019,07/25/2018 Influenza, injectable, quadrivalent 06/11/2020 Influenza, injectable, quadr ivalent, preservative free 10/01/2021 [employer] COVID-19 Vac cine (Purple Cap) 12+ 10/01/2021,02/21/2021,01/09/2021 TD (adult), 2 Lf tetanus tox oid, preservative free, adsorbed 12/17/1996 Tdap 06/29/2015 Family History Medical History Relation Name Comments Cancer Daughter Cancer Father Cancer Maternal Grandmother Cancer Mother Cancer Mother's Sister Relation Name Status Comments Daughter Father Maternal Grandmother Mother Mother's Sister Social History Tobacco Use Types Packs/Day Years Used Date Smoking Tobacco: Never Smokeless Tobacco: Never Tobacco Cessation:Counseling Given: Not Answered Alcohol Use Standard Drinks/Week Comments Never 0 [...] place to sleep or slept in a longterm (including now)? 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 0 2023 CAGE Questionnaire Score 0 023 Utilities Answer Date Recorded In the past 12 months has th [employer] electric, gas, oil, or water company threatened to shut off services in your home? Yes 09/12/2023 PHQ-2A Answer Date Recorded Patient Health Questionnaire-2 Score 2 04/14/2023 Comments Unknown Sex and Gender Information Value Date Recorded Sex Assigned at Not on file Legal Sex Female 7:37 PM EDT Gender Identity Not on file Sexual Orientation Not on file Last Filed Vital Signs Vital Sign Reading Time Taken Comments Blood Pressure 123/81 09/14/2023 8:41 AM EST Pulse 101 09/14/2023 8:41 AM EST Temperature 36.5 C (97.7 F) 09/14/2023 8:41 AM EST Respiratory Rate 35 09/13/2023 11:15 AM EST Oxygen Saturation 99% 09/14/2023 8:41 AM EST Inhaled Oxygen Concentration - - Weight 49.5 kg (109 lb 2 oz) 09/10/2023 5:50 AM EST Height 157.5 cm (5' 2 ) 09/10/2023 5:50 AM EST Body Mass Index 19.96 09/10/2023 5:50 AM EST Plan of Treatment Upcoming Encounters Date Type Department Care Team (Late st Contact Info) Description 05/20/2025 11:20 AM EDT [facility] Nephrology, Bone & Mineral Metabolism [address], [address] [place] [address] Chana Dooley APRN [address] [place] [address] 08/27/2025 10:15 AM EST Office Visit Medical Office Building Obstetrics and Gynecology [address] [facility], [address] [place] [address] Anita Pradhan, KARIN [address] [facility] [address] [place] [address] Health Maintenance Due Date Last Done Comments [facility]-Medicare Annual Wellness (AWV) 1965 [facility]-Infant/Child/Adol SDOH Screenings 1965 [facility]- SDOH Screenings 01/19/1984 [facility]-Adult SDOH Screenings 01/19/1984 [facility]-Hepatitis B Vaccines (1 of 3 - 19+ 3-dose series) 1985 CT Colonography 2011 Colonoscopy 2011 FIT-DNA 2011 FIT 2011 FOBT 2011 Sigmoidoscopy 2011 [facility]-Colorectal Cancer Screening 2011 [facility]-Breast Cancer Screening 01/19/2016 [facility]-Zoster Vaccines (1 of 2) 01/19/2016 [facility]-Depression Screening 04/14/2024 04/14/2023, 03/26 [id number] Vaccine ( season) 2024 06/15/2022, 10/01/2021, 02/21/2021, Additional history exists [facility]-Pap Smear 03/16/2025 03/16/2022 [facility]-Influenza Vaccine (#1) 05/26/202511/25, 06/15/2022, 10/01/2021, Additional history exists [facility]-Cervical Cancer Screening 03/16/2027 [facility]-HPV/Cotest 03/16/2027 03/16/2022 [facility]-DTaP,Tdap,and Td Vaccines (3 - Td or Tdap) 06/15/2032 06/15/2022, 06/29/2015, 12/17/1996 [facility]-Hepatitis A Vaccines Completed 04/23/2020, 0309/2018 [facility]-HIV Screening Completed 03/22/2023, , 12/22/2022 [facility]-Pneumococcal Vaccine: 50+ Years Completed 11/25/2024 HPV Vaccines Aged Out No longer eligi ble based on patient's age to complete this topic [facility]-HIB Vaccines Aged Out No longer e ligible based on patient's age to complete this topic [facility]-IPV Vaccines Aged Out No longer e ligible based on patient's age to complete this topic [facility]-Rotavirus Vaccines Aged Out No lo nger eligible based on patient's age to complete this topic Procedures Procedure Name Priority Date/Time Associated Diagnosis Comments HIV 1/2 ANTIBODY/ANTIGEN SCREEN WITH REFLEX TO HIV I/II DIFFERENTIATION Routine 03/22/2023 10:43 AM EDT Chronic hepatitis C without hepatic coma (CMS/HCC) PAP TEST - CYTOLOGY Routine 03/16/2022 1 1:53 AM EDT Health care maintenance from Last 3 Months or Most Recently Relevant to Health Maintenance Results * HIV 1 & 2 Antibody/Antigen Screen (03/22/2023 10:43 AM EDT) HIV 1 & 2 Antibody/Antigen Screen Non Reactive Non Reactive 03/22/2023 12:49 PM EDT [facility] Comment:Screening for HIV 1 & 2 antibodies, and P24 antigen is NONREACTIVE. No confirmatory testing is required. Blood Venous blood specimen / Unknown Venipuncture / Unknown 03/22/2023 10:43 AM EDT 03/22/2023 12:19 PM EDT us Juana Merchant MD LAB BLOOD ORDERABLES Marga l Result [facility] [address] [id number] * Pap Smear (03/16/2022 11:53 AM EDT) Case Report Cytology Case: [id number] Authorizing Provider: Opal Chamberlain MD Collected: 03/16/2022 1153 Ordering Location: Obstetrics & Gynecology Received: 03/17/2022 0936 First Screen: Brett Wheat Rescreen: Sona L Yu, CT Specimen: ThinPrep Pap Test, Liquid-Based Cervical/Vaginal, CERVICAL/VAGINAL 03/18/2022 10:54 AM EDT [facility] Interpretation NEGATIVE FOR INTRAEPITHELIAL LESION OR MALIGNANCY 03/18/2022 10:54 AM EDT [facility] at 1054 EDT Other Findings Shift in michael suggestive of bacterial vaginosis. 03/18/2022 10:54 AM EDT [facility] Specimen Adequacy Satisfactory for evaluation; endocervical/castellon sformation zone component absent/insufficie nt. Slide imaged by the ThinPrep Imaging system and selected 22 velazquez reviewed then full manual screening. 03/18/2022 10:54 AM EDT [facility] Cervical cytology is a screening test primarily for squamous cancers and precursors and has associated false negative and positive results. New technologies such as liquid based sampling may decrease but will not eliminate all false negative results. Regular screening and follow-up of unexplained clinical signs and symptoms are recommended to minimize false negative results. Please see the ASCCP website (www.asccp.org)fo r followup recommendations. If HPV testing was requested, correlation with the results is suggested (please call Microbiology at [phone] for results). 03/18/2022 10:54 AM EDT [facility] Menstrual Status [facility] Contraceptive History Not Applicable 03/18/2022 10:[facility] Screening Type Routine Screen 2021 10:54 AM EDT [facility] High Risk? No 03/18/2022 10:[facility] HPV Testing Requested? Request HPV Testing Regardless of Pap Test Findings 03/18/2022 10:54 AM EDT [facility] Previous Cancer History Yes 03/18/2022 10:54 AM EDT [facility] Previous Cancer Primary Site Cervix Cancer 03/18/2022 10:54 AM EDT [facility] Clinical Information Z00.00 - Health care maintenance [ICD-10-CM] 03/18/2022 10:54 [facility] Last Menstrual Period unknown 03/18/2022 10:54 [facility] Swab Vaginal and cervical cytologic material / Unknown Non-blood Collection / Unknown 03/16/2022 11:53 AM EDT 03/17/2022 9:36 AM EDT us Opal Chamberlain MD LAB CYTOLOGY ORDERABLES Final Result [facility] [address] [place] [address] from Last 3 Months or Most Recently Relevant to Health Maintenance Insurance [facility] MEDICAID [place]ICAID-[place] [facility] MEDICARE Advance Directives * Full Code (Latest Code Status on File) Date Activated Date Inactivated Comments 09/10/2023 5:08 AM 09/14/2023 12:56 PM Question Answer Comments Patient has decision-making capacity? Yes * Full Code Date Activated Date Inactivated Comments 01/17/2023 8:43 PM 01/20/2023 10:19 PM Question Answer Comments Patient has decision-making capacity? Yes * Full Code Date Activated Date Inactivated Comments 12/30/2022 6:11 PM 01/01/2023 11:36 PM Question Answer Comments Patient has decision-making capacity? Yes * Full Code Date Activated Date Inactivated Comments 12/21/2022 11:07 AM 12/24/2022 6:59 PM Question Answer Comments Patient has decision-making capacity? Yes Care Teams Biochemistry Professor Relationship Specialty Start Date End Date Umu De Oliveira PA [address] [place] [address] PCP - General 04/21/25
[2025-04-25 13:24] LABS: Hematocrit 33.1 % (37.0-47.0); Hemoglobin 11.4 g/dL (12.2-16.2); Immature Granulocytes % 0.2 %; Mean Corpuscular HGB Conc 34.4 g/dL (31.8-35.4); Mean Corpuscular Hemoglobin 31.8 pg (27.0-31.2); Mean Corpuscular Volume 92.5 fl (81-99); Nucleated Red Blood Cells % 0 %; Platelet Count 307 K/mm3 (142-424); Red Blood Count 3.58 M/mm3 (4.20-5.40); Red Cell Distribution Width-SD 43.4 fL; White Blood Count 4.1 K/mm3 (4.8-10.8)
[2025-04-25 13:53] LABS: Alanine Aminotransferase 10 U/L (12-78); Albumin Level 4.5 g/dl (3.5-5.0); Albumin/Globulin Ratio 1.9 (1.1-1.8); Alkaline Phosphatase 136 U/L (38-126); Anion Gap 10.8 mEq/L (5-15); Aspartate Amino Transferase 21 U/L (14-36); Bilirubin,Total 0.3 mg/dl (0.2-1.3); Blood Urea Nitrogen 5 mg/dl (7-17); Calcium 10.0 mg/dl (8.4-10.2); Carbon Dioxide 26 mmol/L (22.0-30.0); Chloride 100 mmol/L (98-107); Creatinine,Serum 0.60 mg/dl (0.52-1.04); Estimated Glomerular Filt Rate 102 ml/min (>60); GFR (African American) 124 ML/MIN (>60); Globulin 2.4 g/dL (1.3-3.2); Glucose 144 mg/dl (74-100); Potassium 3.8 mmoL/L (3.5-5.1); Sodium 133 mmol/L (136-145); Total Protein,Serum 6.9 g/dl (6.3-8.2)
[2025-04-26 08:32] LABS: Hepatitis B Surface Antigen Negative (Negative)
== END 2025-04-25 23:59 | disposition home or self-care (01) ==
LOC: LAB 12:47
PROVIDERS: PCP Physician Assistant; Visit Provider Physician Assistant
DX: B18.2 Chronic viral hepatitis C (principal)
CPT/HCPCS: 36415; 80053; 85025; 87340; 87522